=== PATIENT | female | born 1965 | race Native Hawaiian/Other Pacific Islander ===

== ENCOUNTER 2017-02-01 22:11 | Emergency (ER) | payer SELFPAY ==
[2017-02-01 22:16] VITALS: BP 128/88
[2017-02-02 01:42] LABS: Bilirubin,Urine NEG (Negative); Blood,Urine NEG (Negative); Ketones,Urine NEG (Negative); Leukocyte Esterase,Urine SM (Negative); Nitrite,Urine NEG (Negative); Protein,Urine <15 mg/dL mg/dL (Negative); Urobilinogen,Urine < 2.0 mg/dL (<2.0)
[2017-02-02] MEDS ORDERED: NORCO 5/325 PO ONE (03:18)
--- NOTE | 2017-02-02 03:22 | Emergency Department Report ---
ED Back Pain/Injury HPI - General Chief Complaint: Back Pain/Injury Stated Complaint: LOWER BACK PAIN Time Seen by Provider: 02/02/17 03:02 Source: patient Limitations: No Limitations - History of Present Illness Initial Comments: 51-year-old female presents to emergency room with complaints of chronic low back pain. Denies any recent fall or injury. Patient recently moved from [place] and does not have a primary care doctor here. Patient also requesting refill her metformin for her diabetes. Complaint: back pain -: Gradual, year(s) Place: home Radiation: none Severity: mild Severity scale (0 -10): 2 Quality: dull, aching Consistency: constant Improves With: movement Worsens With: movement Context: turning/twisting, bending Associated Symptoms: denies other symptoms Treatments Prior to Arrival: NSAIDS - Related Data Previous Rx's Medication Instructions Recorded Last Taken Type Baclofen 20 mg PO BID #20 tablet 02/02/17 Unknown Rx Diclofenac Sodium 75 mg PO BID #20 tablet. 02/02/17 Unknown Rx Metformin HCl [Glucophage] 1,000 mg PO BID #60 tablet 02/02/17 Unknown Rx Allergies Allergy/AdvReac Type Severity Reaction Status Date / Time No Known Allergies Allergy Unverified 02/01/17 22:40 ED Review of Systems ROS: Stated complaint: LOWER BACK PAIN Other details as noted in HPI Comment: All other systems reviewed and negative Constitutional: denies: chills, fever Eyes: denies: eye pain, eye discharge, vision change ENT: denies: ear pain, throat pain Respiratory: denies: cough, shortness of breath, wheezing Cardiovascular: denies: chest pain, palpitations Endocrine: no symptoms reported Gastrointestinal: denies: abdominal pain, nausea, diarrhea Genitourinary: denies: urgency, dysuria, discharge Musculoskeletal: back pain. denies: joint swelling, arthralgia Skin: denies: rash, lesions Neurological: denies: headache, weakness, paresthesias Psychiatric: denies: anxiety, depression Hematological/Lymphatic: denies: easy bleeding, easy bruising ED Past Medical Hx - Past Medical History Previous Medical History?: Yes Hx Hypertension: Yes Hx Diabetes: Yes Additional medical history: hyperlipidemia - Surgical History Past Surgical History?: Yes Additional Surgical History: gallbladder, L ovary removal - Social History Smoking Status: Never Smoker Substance Use Type: None - Medications Home Medications: Home Medications Medication Instructions Recorded Confirmed Last Taken Type Baclofen 20 mg PO BID #20 tablet 02/02/17 Unknown Rx Diclofenac Sodium 75 mg PO BID #20 tablet. 02/02/17 Unknown Rx Metformin HCl [Glucophage] 1,000 mg PO BID #60 tablet 02/02/17 Unknown Rx ED Physical Exam - General Limitations: No Limitations General appearance: alert, in no apparent distress - Head Head exam: Present: atraumatic, normocephalic - Eye Eye exam: Present: normal appearance - ENT ENT exam: Present: mucous membranes moist - Neck Neck exam: Present: normal inspection - Respiratory Respiratory exam: Present: normal lung sounds bilaterally. Absent: respiratory distress - Cardiovascular Cardiovascular Exam: Present: regular rate, normal rhythm. Absent: systolic murmur, diastolic murmur, rubs, gallop - GI/Abdominal GI/Abdominal exam: Present: soft, normal bowel sounds - Extremities Exam Extremities exam: Present: normal inspection - Back Exam Back exam: Present: normal inspection, muscle spasm (right paraspinal area of L4 to L5), paraspinal tenderness - Neurological Exam Neurological exam: Present: alert, oriented X3 - Psychiatric Psychiatric exam: Present: normal affect, normal mood - Skin Skin exam: Present: warm, dry, intact, normal color. Absent: rash ED Course Vital Signs 02/01/17 02/01/17 22:12 22:35 Temperature 98.3 F 98.3 F Pulse Rate 97 H 97 H Respiratory 20 20 Rate Blood Pressure 128/88 Blood Pressure 128/88 [Right] O2 Sat by Pulse 100 100 Oximetry - Reevaluation(s) Reevaluation #1: Patient's symptoms improved after given pain medicine. 02/02/17 03:41 Critical care attestation.: If time is entered above; I have spent that time in minutes in the direct care of this critically ill patient, excluding procedure time. ED Disposition Clinical Impression: Medication refill Chronic lower back pain Qualifiers: Back pain laterality: right Sciatica presence: without sciatica Qualified Code( s): M54.5 - Low back pain; G89.29 - Other chronic pain Disposition: DISCHARGED TO HOME OR SELFCARE Is pt being admited?: No Does the pt Need Aspirin: No Condition: Good Instructions: Chronic Back Pain (ED), Diabetes Mellitus Type 2 in Adults (ED) Prescriptions: Baclofen 20 mg PO BID #20 tablet Diclofenac Sodium 75 mg PO BID #20 tablet. Metformin HCl [Glucophage] 1,000 mg PO BID #60 tablet Referrals: PRIMARY CARE, [Primary Care Provider] - 3-5 Days Print Language: CAMEROONIAN
== END 2017-02-02 04:10 | disposition home or self-care (01) ==
LOC: ED 22:11
DX: M54.5 Low back pain (principal); G89.29 Other chronic pain; I10 Essential (primary) hypertension; E11.9 Type 2 diabetes mellitus without complications; E78.00 Pure hypercholesterolemia, unspecified
CPT/HCPCS: 81001; 82962; 99284

== ENCOUNTER 2017-04-27 21:04 | Emergency (ER) | payer SELFPAY ==
[2017-04-27 21:12] VITALS: BP 121/85
--- NOTE | 2017-04-27 23:57 | Emergency Department Report ---
ED Headache HPI - General Chief Complaint: Headache Stated Complaint: CRUZ Time Seen by Provider: 04/27/17 23:37 Source: patient Exam Limitations: no limitations - History of Present Illness Initial Comments: Patient is a 51-year-old female presents to the ED complaining of her right parietal region throbbing, intermittent and 6/10 intensity headache that started about 12:30 this afternoon. Patient denies any recent trauma or fall, loss of consciousness. Patient states she frequently gets migraines. She denies fevers/chills/nausea/vomiting/abdominal pain/chest pain/blurry vision /loss of vision. Timing/Duration: other (12 hours) Quality: moderate, throbbing Head Injury Location: parietal Recent Head Trauma: no recent headache/trauma, frequent headaches Modifying Factors: improves with: medication Associated Symptoms: denies: confusion, facial pain, fever/chills, loss of consciousness, nausea/vomiting, nasal congestion, nasal drainage, sinus infection, stiff neck, vision changes Allergies/Adverse Reactions: Allergies No Known Allergies Allergy (Unverified 02/01/17 22:40) Home Medications: Ambulatory Orders Baclofen 20 mg PO BID #20 tablet 02/02/17 Diclofenac Sodium 75 mg PO BID #20 tablet. 02/02/17 Metformin HCl [Glucophage] 1,000 mg PO BID #60 tablet 02/02/17 Butalb/Acetamin/Caff 50-325-40 [Fioricet] 1 tab PO Q6HR PRN #24 tab 04/28/17 Prochlorperazine Maleate [Compazine] 5 mg PO BID #20 tablet 04/28/17 ED Review of Systems ROS: Stated complaint: CRUZ Other details as noted in HPI Constitutional: denies: chills, fever Eyes: denies: eye pain, eye discharge, vision change ENT: denies: ear pain, throat pain, dental pain, hearing loss, congestion Respiratory: denies: cough, orthopnea, shortness of breath, wheezing Cardiovascular: denies: chest pain, palpitations Endocrine: no symptoms reported. denies: flushing Gastrointestinal: denies: abdominal pain, nausea, vomiting, diarrhea Genitourinary: denies: urgency, dysuria, discharge Musculoskeletal: denies: back pain, joint swelling, arthralgia, myalgia Skin: denies: rash, lesions Neurological: headache. denies: weakness, numbness, paresthesias, confusion, abnormal gait, vertigo, other Psychiatric: denies: anxiety, depression, suicidal thoughts Hematological/Lymphatic: denies: easy bleeding, easy bruising ED Past Medical Hx - Past Medical History Hx Hypertension: Yes Hx Diabetes: Yes Additional medical history: hyperlipidemia - Surgical History Additional Surgical History: gallbladder, L ovary removal - Social History Smoking Status: Never Smoker Substance Use Type: None - Medications Home Medications: Home Medications Medication Instructions Recorded Confirmed Last Taken Type Baclofen 20 mg PO BID #20 tablet 02/02/17 Unknown Rx Diclofenac Sodium 75 mg PO BID #20 tablet. 02/02/17 Unknown Rx Metformin HCl [Glucophage] 1,000 mg PO BID #60 tablet 02/02/17 Unknown Rx Butalb/Acetamin/Caff 50-325-40 1 tab PO Q6HR PRN #24 tab 04/28/17 Unknown Rx [Fioricet] Prochlorperazine Maleate 5 mg PO BID #20 tablet 04/28/17 Unknown Rx [Compazine] ED Physical Exam - General Limitations: No Limitations General appearance: alert, in no apparent distress - Head Head exam: Present: atraumatic, normocephalic - Eye Eye exam: Present: normal appearance, PERRL, EOMI Pupils: Present: normal accommodation - ENT ENT exam: Present: mucous membranes moist - Neck Neck exam: Present: normal inspection, full ROM. Absent: lymphadenopathy, thyromegaly - Respiratory Respiratory exam: Present: normal lung sounds bilaterally. Absent: respiratory distress, wheezes - Cardiovascular Cardiovascular Exam: Present: regular rate, normal rhythm. Absent: systolic murmur, diastolic murmur, rubs, gallop - GI/Abdominal GI/Abdominal exam: Present: soft, normal bowel sounds - Extremities Exam Extremities exam: Present: normal inspection, full ROM - Back Exam Back exam: Present: normal inspection - Neurological Exam Neurological exam: Present: alert, oriented X3, CN II-XII intact, normal gait - Expanded Neurological Exam Expanded Neurological exam: Absent: memory loss-remote event, memory loss-recent event Patient oriented to: Present: person, place, time Cranial nerves: EOM's Intact: Normal Cerebellar function: Finger to Nose: Normal Upper motor neuron: Sensory Extinction: Normal Sensory exam: Upper Extremity Light Touch: Normal, Lower Extremity Light Touch: Normal Motor strength exam: RUE: 5, LUE: 5, RLE: 5, LLE: 5 DTR: knee (R): 2+, knee (L): 2+ Best Eye Response ([place]): (4) open spontaneously Best Motor Response ([place]): (6) obeys commands Best Verbal Response ([place]): (5) oriented [place] Total: 15 - Psychiatric Psychiatric exam: Present: normal affect, normal mood - Skin Skin exam: Present: warm, dry, intact, normal color. Absent: rash ED Course Vital Signs 04/27/17 04/28/17 21:07 00:15 Temperature 98.3 F Pulse Rate 88 Respiratory 16 18 Rate Blood Pressure 121/85 O2 Sat by Pulse 100 Oximetry ED Medical Decision Making - Medical Decision Making 51-year-old female presents with acute headache ED course: Patient received Fioricet and Tylenol in the ED Patient is neurological stable she's is no neuro deficit. Vital signs are stable patient is in no acute distress. Discussed the patient to follow up with primary care physician as referred. Discussed the patient's symptoms worsen or new symptoms arise such as nausea vomiting dizziness to return to ED Critical care attestation.: If time is entered above; I have spent that time in minutes in the direct care of this critically ill patient, excluding procedure time. ED Disposition Clinical Impression: Migraine headache without aura Qualifiers: Status migrainosus presence: without status migrainosus Intractability: not intractable Qualified Code(s): G43.009 - Migraine without aura, not intractable , without status migrainosus Acute tension headache Qualifiers: Intractability: not intractable Qualified Code(s): G44.209 - Tension-type headache, unspecified, not intractable Disposition: DISCHARGED TO HOME OR SELFCARE Is pt being admited?: No Does the pt Need Aspirin: No Condition: Stable Instructions: Migraine Headache (ED), Acute Headache (ED) Prescriptions: Butalb/Acetamin/Caff 50-325-40 [Fioricet] 1 tab PO Q6HR PRN #24 tab PRN Reason: Headache Prochlorperazine Maleate [Compazine] 5 mg PO BID #20 tablet Referrals: PRIMARY CARE, [Primary Care Provider] - 3-5 Days ARIANNA MELLO MD [Referring] - 3-5 Days [facility] [Outside] - 3-5 Days [facility] [Outside] - 3-5 Days [facility] [Outside] - 3-5 Days Forms: Work/School Release Form(ED) Time of Disposition: 00:04
[2017-04-27] MEDS ORDERED: FIORICET PO ONE (23:59)
[2017-04-28] MEDS ORDERED: TORADOL IM ONE
== END 2017-04-28 00:32 | disposition home or self-care (01) ==
LOC: ED 21:04
DX: G43.009 Migraine without aura, not intractable, without status migrainosus (principal); G44.209 Tension-type headache, unspecified, not intractable; I10 Essential (primary) hypertension; E11.9 Type 2 diabetes mellitus without complications
CPT/HCPCS: 96372; 99282; J1885

== ENCOUNTER 2017-05-05 19:20 | Emergency (ER) | payer SELFPAY ==
[2017-05-05] MEDS ORDERED: REGLAN IV ONE (22:56)
--- NOTE | 2017-05-05 23:12 | Emergency Department Report ---
ED Headache HPI - General Chief Complaint: Headache Stated Complaint: HEADACHES Time Seen by Provider: 05/05/17 22:55 - History of Present Illness Timing/Duration: 1 week Allergies/Adverse Reactions: Allergies No Known Allergies Allergy (Unverified 02/01/17 22:40) Home Medications: Ambulatory Orders Baclofen 20 mg PO BID #20 tablet 02/02/17 Diclofenac Sodium 75 mg PO BID #20 tablet. 02/02/17 Metformin HCl [Glucophage] 1,000 mg PO BID #60 tablet 02/02/17 Butalb/Acetamin/Caff 50-325-40 [Fioricet] 1 tab PO Q6HR PRN #24 tab 04/28/17 Prochlorperazine Maleate [Compazine] 5 mg PO BID #20 tablet 04/28/17 Naproxen [Naprosyn TAB] 500 mg PO BID PRN #25 tablet 05/06/17 ED Review of Systems ROS: Stated complaint: HEADACHES Other details as noted in HPI ED Past Medical Hx - Past Medical History Previous Medical History?: Yes Hx Hypertension: Yes Hx Diabetes: Yes Additional medical history: hyperlipidemia - Surgical History Past Surgical History?: Yes Additional Surgical History: gallbladder, L ovary removal - Social History Smoking Status: Never Smoker Substance Use Type: None - Medications Home Medications: Home Medications Medication Instructions Recorded Confirmed Last Taken Type Baclofen 20 mg PO BID #20 tablet 02/02/17 Unknown Rx Diclofenac Sodium 75 mg PO BID #20 tablet. 02/02/17 Unknown Rx Metformin HCl [Glucophage] 1,000 mg PO BID #60 tablet 02/02/17 Unknown Rx Butalb/Acetamin/Caff 50-325-40 1 tab PO Q6HR PRN #24 tab 04/28/17 Unknown Rx [Fioricet] Prochlorperazine Maleate 5 mg PO BID #20 tablet 04/28/17 Unknown Rx [Compazine] Naproxen [Naprosyn TAB] 500 mg PO BID PRN #25 tablet 05/06/17 Unknown Rx ED Physical Exam - General Limitations: No Limitations ED Course Vital Signs 05/05/17 19:47 Temperature 98.8 F Pulse Rate 91 H Respiratory 18 Rate Blood Pressure 123/84 [Right] O2 Sat by Pulse 98 Oximetry ED Medical Decision Making - Lab Data Result diagrams: 05/05/17 23:10 05/05/17 23:10 - Medical Decision Making A/P: Migraine headache, right lower extremity cellulitis 1- with 1 dose of IV Reglan patient's headache is now 0 out of 10. initally 07/05 2-CT scan within normal limits 3-CBC and BMP within normal limits 4-will give patient follow up with primary care and neurology, naproxen when necessary for headache 5- patient has no clinical neurological deficits on exam 6-Keflex and Bactrim twice a day, borders of cellulitis marked Critical care attestation.: If time is entered above; I have spent that time in minutes in the direct care of this critically ill patient, excluding procedure time. ED Disposition Clinical Impression: Migraine headache without aura Qualifiers: Status migrainosus presence: without status migrainosus Intractability: not intractable Qualified Code(s): G43.009 - Migraine without aura, not intractable , without status migrainosus Disposition: TO HOME OR SELFCARE Is pt being admited?: No Does the pt Need Aspirin: No Condition: Stable Instructions: Migraine Headache (ED), Acute Headache (ED) Prescriptions: Naproxen [Naprosyn TAB] 500 mg PO BID PRN #25 tablet PRN Reason: Pain Referrals: GALE FERNANDEZ MD [Staff Physician] - 3-5 Days [facility] [Outside] - 3-5 Days Forms: Work/School Release Form(ED) Time of Disposition: 01:42 Print Language: PARAGUAYAN
--- NOTE | 2017-05-05 23:50 | Cat Scan Report ---
FINAL REPORT PROCEDURE: CT HEAD/BRAIN WO CON TECHNIQUE: Computerized tomography of the head was performed without contrast material. HISTORY: worsening headache COMPARISON: No prior studies are available for comparison. FINDINGS: Skull and scalp: Normal. Paranasal sinuses: Normal. Ventricles and subarachnoid spaces: Normal. Cerebrum: No evidence of hemorrhage, acute infarction or mass . Cerebellum and brainstem: No evidence of hemorrhage, acute infarction or mass. Vasculature: Normal. Comments: None. IMPRESSION: There is evidence of an acute intracranial process.
[2017-05-06 01:03] LABS: Anion Gap 16 mmol/L; Blood Urea Nitrogen 9 mg/dL (7-17); Calcium 9.6 mg/dL (8.4-10.2); Carbon Dioxide 28 mmol/L (22-30); Chloride 103.2 mmol/L (98-107); Glucose 189 mg/dL (65-100); Potassium 4.6 mmol/L (3.6-5.0); Sodium 143 mmol/L (137-145)
[2017-05-06 01:17] LABS: Basophils % (Auto) 0.7 % (0.0-1.8); Eosinophils % (Auto) 2.7 % (0.0-4.3); Hemoglobin 13.8 gm/dl (10.1-14.3); Mean Corpuscular HGB Conc 33 % (30-34); Mean Corpuscular Hemoglobin 29 pg (28-32); Mean Corpuscular Volume 87 fl (79-97); Platelet Count 139 K/mm3 (140-440); Red Blood Count 4.85 M/mm3 (3.65-5.03); Red Cell Distribution Width 14.7 % (13.2-15.2); White Blood Count 6.1 K/mm3 (4.5-11.0)
[2017-05-06 02:05] VITALS: BP 116/73
== END 2017-05-06 02:05 | disposition home or self-care (01) ==
LOC: ED 19:20
DX: G43.909 Migraine, unspecified, not intractable, without status migrainosus (principal); I10 Essential (primary) hypertension; E11.9 Type 2 diabetes mellitus without complications; E78.5 Hyperlipidemia, unspecified
CPT/HCPCS: 36415; 70450; 80048; 85025; 96374; 99284; J2765

== ENCOUNTER 2017-06-29 07:41 | Inpatient (IN) | payer SELFPAY ==
[2017-06-29 08:17] LABS: Basophils % (Auto) 0.9 % (0.0-1.8); Eosinophils % (Auto) 3.5 % (0.0-4.3); Hematocrit 39.1 % (30.3-42.9); Hemoglobin 13.2 gm/dl (10.1-14.3); Mean Corpuscular HGB Conc 34 % (30-34); Mean Corpuscular Hemoglobin 29 pg (28-32); Mean Corpuscular Volume 86 fl (79-97); Platelet Count 159 K/mm3 (140-440); Red Blood Count 4.55 M/mm3 (3.65-5.03); Red Cell Distribution Width 14.5 % (13.2-15.2); White Blood Count 5.3 K/mm3 (4.5-11.0)
--- NOTE | 2017-06-29 08:23 | Emergency Department Report ---
ED Chest Pain HPI - General Chief Complaint: Chest Pain Stated Complaint: CHEST PRESSURE Time Seen by Provider: 06/29/17 08:13 Source: patient, EMS Mode of arrival: Stretcher Limitations: No Limitations - History of Present Illness Initial Comments: Patient stated that she work on this morning went to the bathroom and she felt left chest pressure that continued 4 minutes and went away. Denied any shortness of breath nausea or vomiting no sweating. No fever MD Complaint: chest pain -: This morning - Related Data Home Medications Medication Instructions Recorded Confirmed Last Taken Lovastatin [Altoprev] 20 mg PO QPM 06/29/17 06/29/17 06/28/17 Previous Rx's Medication Instructions Recorded Last Taken Type Metformin HCl [Glucophage] 1,000 mg PO BID #60 tablet 02/02/17 06/28/17 Rx Allergies Allergy/AdvReac Type Severity Reaction Status Date / Time No Known Allergies Allergy Unverified 02/01/17 22:40 Heart Score - HEART Score History: Moderately suspicious EKG: Non-specific Age: 45-65 Risk factors: > 3 risk factors or hx of atherosclerotic disease Troponin: < normal limit HEART Score: 5 - Critical Actions Critical Actions: 4-6 pts:12-16.6% risk of adverse cardiac event. Should be admitted ED Review of Systems ROS: Stated complaint: CHEST PRESSURE Other details as noted in HPI Comment: All other systems reviewed and negative Constitutional: denies: chills, fever Cardiovascular: chest pain. denies: palpitations, dyspnea on exertion, orthopnea, syncope Gastrointestinal: denies: abdominal pain, nausea, vomiting Musculoskeletal: denies: back pain Neurological: denies: headache, weakness, numbness ED Past Medical Hx - Past Medical History Hx Hypertension: Yes Hx Diabetes: Yes Additional medical history: hyperlipidemia - Surgical History Additional Surgical History: gallbladder, L ovary removal - Social History Smoking Status: Light Tobacco Smoker Substance Use Type: None - Medications Home Medications: Home Medications Medication Instructions Recorded Confirmed Last Taken Type Metformin HCl [Glucophage] 1,000 mg PO BID #60 tablet 02/02/17 06/29/17 Rx Lovastatin [Altoprev] 20 mg PO QPM 06/29/17 06/29/17 06/28/17 History ED Physical Exam - General Limitations: No Limitations General appearance: alert, in no apparent distress - Head Head exam: Present: atraumatic - Eye Eye exam: Present: normal appearance - ENT ENT exam: Present: normal exam - Neck Neck exam: Present: normal inspection. Absent: tenderness - Respiratory Respiratory exam: Present: normal lung sounds bilaterally. Absent: respiratory distress, wheezes, rales - Cardiovascular Cardiovascular Exam: Present: regular rate, normal rhythm, normal heart sounds - GI/Abdominal GI/Abdominal exam: Present: soft. Absent: tenderness, guarding, mass, pulsatile mass - Extremities Exam Extremities exam: Present: normal inspection - Back Exam Back exam: Present: normal inspection - Neurological Exam Neurological exam: Present: alert, oriented X3, CN II-XII intact - Skin Skin exam: Present: warm, intact ED Course Vital Signs 06/29/17 06/29/17 06/29/17 07:45 07:50 08:00 Temperature 98.3 F Pulse Rate 88 90 Respiratory 16 14 Rate Blood Pressure 122/80 122/80 O2 Sat by Pulse 97 96 97 Oximetry 06/29/17 06/29/17 06/29/17 08:06 08:11 08:21 Temperature Pulse Rate 89 85 Respiratory 16 13 12 Rate Blood Pressure 126/88 O2 Sat by Pulse 99 97 97 Oximetry 06/29/17 06/29/17 08:31 08:41 Temperature Pulse Rate 87 89 Respiratory 12 13 Rate Blood Pressure 126/88 126/88 O2 Sat by Pulse 96 96 Oximetry - Reevaluation(s) Reevaluation #1: 06/29/17 10:04 Patient stated that she is feeling much better chest pain is completely resolved. Discussed with SHANNON for admission ED Medical Decision Making - Lab Data Result diagrams: 06/29/17 08:08 06/29/17 08:08 Critical care attestation.: If time is entered above; I have spent that time in minutes in the direct care of this critically ill patient, excluding procedure time. ED Disposition Clinical Impression: Chest pain Disposition: OP ADMIT IP TO THIS HOSP Is pt being admited?: Yes Condition: Stable Instructions: Chest Pain (ED) Referrals: PRIMARY CARE,MD [Primary Care Provider] - 3-5 Days
[2017-06-29 08:38] LABS: Anion Gap 21 mmol/L; Blood Urea Nitrogen 7 mg/dL (7-17); Calcium 8.9 mg/dL (8.4-10.2); Carbon Dioxide 24 mmol/L (22-30); Chloride 100.8 mmol/L (98-107); Glucose 244 mg/dL (65-100); Potassium 3.8 mmol/L (3.6-5.0); Sodium 142 mmol/L (137-145)
--- NOTE | 2017-06-29 08:52 | XRay Report ---
AP CHEST: HISTORY: chest pain AP view of the chest demonstrates a normal mediastinal and cardiac contour with clear lungs and normal bony and soft tissue structures. IMPRESSION: Unremarkable AP chest.
[2017-06-29 08:58] LABS: Alanine Aminotransferase 45 units/L (7-56); Albumin 3.9 g/dL (3.9-5); Albumin/Globulin Ratio 1.4 %; Alkaline Phosphatase 91 units/L (35-129); Lipase 55 units/L (13-60); Total Protein 6.6 g/dL (6.3-8.2)
[2017-06-29] MEDS: BABY ASPIRIN PO ONE ×2 (09:00→09:01)
[2017-06-29 09:22] LABS: Bilirubin,Direct < 0.2 mg/dL (0-0.2); Bilirubin,Indirect 0.4 mg/dL
--- NOTE | 2017-06-29 10:13 | History and Physical Report ---
History of Present Illness Date of examination: 06/29/17 Date of admission: 06/29/2017 Chief complaint: Chest pain History of present illness: Patient is a 52 years female with past medical history of hypertension, and diabetes mellitus, who presented to the ED complaining of left chest pain. She states that the pain began this morning and consisted of a dull pain. The pain was located over her left chest, pressure in nature; non radiating. The onset of pain came while the patient was walking to the bathroom. The pain is a dull, preceded by a short interval of a sharp pain.The sharp pain lasted around 1-2 seconds. She continued to have several episodes of the pain this morning, so she decided to come to emergency department. The painful episodes did not increase in intensity or severity during this time. Patient was given nitroglycerin, ASA with out improvement. There is no aggravating factor or alleviating factors. The patient currently rated her pain a score of 1/10. She experienced diaphoresis during these episodes of pain. She denies nausea vomiting and Shortness of breathing. She has never had chest pain in the past. Past History Past Medical History: diabetes, hypertension Past Surgical History: No surgical history Social history: lives with family, smoking. denies: alcohol abuse Family history: CAD, hypertension Medications and Allergies Allergies Allergy/AdvReac Type Severity Reaction Status Date / Time No Known Allergies Allergy Unverified 02/01/17 22:40 Home Medications Medication Instructions Recorded Confirmed Last Taken Type Metformin HCl [Glucophage] 1,000 mg PO BID #60 tablet 02/02/17 06/29/17 Rx Lovastatin [Altoprev] 20 mg PO QPM 06/29/17 06/29/17 06/28/17 History Review of Systems Constitutional: no weight loss, no weight gain Ears, nose, mouth and throat: no ear pain, no ear discharge, no tinnitis, no decreased hearing Breasts: no normal Cardiovascular: chest pain, no syncope, no lightheadedness, no shortness of breath, no dyspnea on exertion Respiratory: no cough, no cough with sputum, no excessive sputum, no shortness of breath, no dyspnea on exertion Gastrointestinal: nausea, no vomiting, no diarrhea, no constipation Genitourinary Female: no pelvic pain, no flank pain, no menorrhagia Rectal: no pain, no incontinence, no bleeding Musculoskeletal: no neck stiffness, no neck pain, no shooting arm pain Integumentary: no rash, no pruritis, no redness Neurological: no head injury, no transient paralysis, no paralysis Psychiatric: no anxiety, no memory loss, no change in sleep habits Endocrine: no cold intolerance, no heat intolerance, no polyphagia Hematologic/Lymphatic: no easy bruising, no easy bleeding Allergic/Immunologic: no urticaria, no allergic rhinitis Exam - Constitutional Vitals: Temp Pulse Resp BP Pulse Ox 98.3 F 89 13 126/88 96 06/29/17 07:45 06/29/17 08:41 06/29/17 08:41 06/29/17 08:41 06/29/17 08:41 General appearance: Present: no acute distress - EENT Eyes: Present: PERRL ENT: hearing intact - Neck Neck: Present: supple - Respiratory Respiratory effort: normal Respiratory: bilateral: CTA - Cardiovascular Rhythm: regular Heart Sounds: Present: S1 & S2 - Extremities Extremities: no ischemia Peripheral Pulses: within normal limits - Abdominal General gastrointestinal: Present: soft, non-tender - Rectal Rectal Exam: deferred - Integumentary Integumentary: Present: clear, warm, dry - Musculoskeletal Musculoskeletal: strength equal bilaterally - Psychiatric Psychiatric: appropriate mood/affect - Neurologic Neurologic: CNII-XII intact - Allied Health Allied health notes reviewed: nursing Results - Labs CBC & Chem 7: 06/29/17 08:08 06/29/17 08:08 Labs: Laboratory Last Values WBC 5.3 K/mm3 (4.5-11.0) 06/29/17 08:08 RBC 4.55 M/mm3 (3.65-5.03) 06/29/17 08:08 Hgb 13.2 gm/dl (10.1-14.3) 06/29/17 08:08 Hct 39.1 % (30.3-42.9) 06/29/17 08:08 MCV 86 fl (79-97) 06/29/17 08:08 MCH 29 pg (28-32) 06/29/17 08:08 MCHC 34 % (30-34) 06/29/17 08:08 RDW 14.5 % (13.2-15.2) 06/29/17 08:08 Plt Count 159 K/mm3 (140-440) 06/29/17 08:08 Lymph % (Auto) 41.6 % (13.4-35.0) H 06/29/17 08:08 [place] % (Auto) 8.2 % (0.0-7.3) H 06/29/17 08:08 Eos % (Auto) 3.5 % (0.0-4.3) 06/29/17 08:08 Baso % (Auto) 0.9 % (0.0-1.8) 06/29/17 08:08 Lymph # 2.2 K/mm3 (1.2-5.4) 06/29/17 08:08 [place] # 0.4 K/mm3 (0.0-0.8) 06/29/17 08:08 Eos # 0.2 K/mm3 (0.0-0.4) 06/29/17 08:08 Baso # 0.0 K/mm3 (0.0-0.1) 06/29/17 08:08 Seg Neutrophils % 45.8 % (40.0-70.0) 06/29/17 08:08 Seg Neutrophils # 2.4 K/mm3 (1.8-7.7) 06/29/17 08:08 D-Dimer 140.53 ng/mlDDU (0-234) 06/29/17 08:31 Sodium 142 mmol/L (137-145) 06/29/17 08:08 Potassium 3.8 mmol/L (3.6-5.0) 06/29/17 08:08 Chloride 100.8 mmol/L (98-107) 06/29/17 08:08 Carbon Dioxide 24 mmol/L (22-30) 06/29/17 08:08 Anion Gap 21 mmol/L 06/29/17 08:08 BUN 7 mg/dL (7-17) 06/29/17 08:08 Creatinine 0.7 mg/dL (0.7-1.2) 06/29/17 08:08 Estimated GFR > 60 ml/min 06/29/17 08:08 BUN/Creatinine Ratio 10.00 % 06/29/17 08:08 Glucose 244 mg/dL (65-100) H 06/29/17 08:08 Calcium 8.9 mg/dL (8.4-10.2) 06/29/17 08:08 Total Bilirubin 0.60 mg/dL (0.1-1.2) 06/29/17 08:31 Direct Bilirubin < 0.2 mg/dL (0-0.2) 06/29/17 08:31 Indirect Bilirubin 0.4 mg/dL 06/29/17 08:31 AST 29 units/L (5-40) 06/29/17 08:31 ALT 45 units/L (7-56) 06/29/17 08:31 Alkaline Phosphatase 91 units/L (35-129) 06/29/17 08:31 Troponin T < 0.010 ng/mL (0.00-0.029) 06/29/17 08:08 Total Protein 6.6 g/dL (6.3-8.2) 06/29/17 08:31 Albumin 3.9 g/dL (3.9-5) 06/29/17 08:31 Albumin/Globulin Ratio 1.4 % 06/29/17 08:31 Lipase 55 units/L (13-60) 06/29/17 08:31 - Imaging and Cardiology Chest x-ray: image reviewed (unremarkable AP chest) Assessment and Plan Assessment and plan: Patient is a 52 years female with past medical history of hypertension, and diabetes mellitus, who presented to the ED complaining of left chest pain. She states that the pain began this morning and consisted of a dull pain.Patient has never had chest pain in the past. Chest x-ray-no focal infiltrates, no pneumothorax. Cardiac enzyme negative and EKG normal sinus rhythm. ASSESSMENT/PLAN Chest pain We will admit to telemetry 12-lead EKG Normal sinus rhythm with heart rate of 72, we also get another EKG ordered for any changes have taken since the first obtain Serial cardiac enzymes negative X3 Fluid hydration Stress test Lexiscan ordered Start on aspirin Controlled with morphine Hypertension IV hydralazine for SBP greater than 160 Closely monitor blood pressure Diabetes mellitus Sliding scale insulin/NovoLog Accu-Chek before meals and at bedtime ADA consistent carbohydrate/cardiac diet Brief Psychotic Episode with questionable hallucinations Mental health evaluation Hyperlipidemia we will resume home antilipid medications Discussed with the patient about the importance of physical exercise, low fat foods to improve cardiovascular disease. DVT prophylaxis Lovenox Advance Directives: Yes Contraindication Mechanical VTE Prophylaxis: Treatment Not Indicated Plan of care discussed with patient/family: Yes
[2017-06-29] MEDS ORDERED: MORPHINE IV PRN (10:14)
[2017-06-29] MEDS ORDERED: DULCOLAX PR PRN (10:14)
[2017-06-29] MEDS ORDERED: TYLENOL PO PRN (10:14)
[2017-06-29] MEDS ORDERED: D50W (25GM) IV PRN (10:18)
[2017-06-29 10:20] LABS: Urine Drugs of Abuse Note Disclamer
[2017-06-29] MEDS ORDERED: NITROSTAT SL PRN (10:22)
--- NOTE | 2017-06-29 10:30 | Admit Criteria Form ---
Admission Criteria Documentation: CHEST PAIN Clinical Indications for Admission to Inpatient Care (Place 'X' for any and all applicable criteria): Admission is indicated for chest pain and ANY ONE of the following(1)(2)(3)(4)(5 ): [ ]I. Angina with acute coronary syndrome (Also use Myocardial Infarction or Angina guideline) [ ]II. Hemodynamic instability [ X]III. Angina needing acute intervention as indicated by ALL of the following (11)(12): [X ]a) Unstable angina is present as indicated by angina that is ANY ONE of the following: [X ]i) New onset [ ]ii) Nocturnal [ ]iii) Prolonged at rest [ ]iv) Progressive [X ]b) Angina warrants acute intervention as indicated by ANY ONE of the following: [ ]i) Recurrent angina (e.g, not responding as previously to treatment) [ ]ii) Angina at rest or with low-level activities despite initial medical therapy [ ]iii) New or presumably new ST-segment depression on ECG [ ]iv) Signs or symptoms of heart failure (eg, dyspnea, pulmonary edema) [ ]v) New or worsening mitral regurgitation [ ]vi) Hemodynamic instability [ ]vii) Dangerous arrhythmia (eg, sustained ventricular tachycardia) [ ]viii) History of percutaneous coronary intervention within 6 months [ ]ix) History of coronary artery bypass graft surgery [ ]x) QUIN risk score of 2 or greater[A] [X ]xi) History of Diabetes(14) [ ]xii) High-risk cardiac ischemia findings on noninvasive testing (e.g, echocardiogram, treadmill testing, nuclear scan) [ ]xiii) Chronic renal insufficiency (ie, estimated GFR less than 60 mL/min/1.732m) [ ]xiv) Left ventricular ejection fraction less than 40% [ ]IV. Evidence of NE (eg, cardiac biomarkers positive, ST-segment elevation on ECG) also use Myocardial Infarction Criteria Form. [ ]V. Pulmonary edema [ ]. Respiratory distress [ ]VII. Chest pain indicative of serious diagnosis other than coronary artery disease (eg, aortic dissection) [ ]VIII. Contraindications and/or Inappropriate clinical situations for Observational Care in patients with Chest Pain, when ANY ONE of the following is required: [ ]a) Patient with risk factor for pulmonary embolism, acute coronary syndrome and myocardial infarction (18) [ ]b) Patient with Pulmonary embolism require an average LOS of 4.3 days, therefore emergency department observation management is inappropriate 18,23 [ ]c) Painful condition/s in the elderly, have the highest rate of recidivism after emergency department observation management (10.8%) 20,21,22 [ ]d) Elevated cardiac biomarker requires intensive and exhaustive care (19) [X ]IX. General contraindications and/or Inappropriate clinical situations for Observational Care in patients with Chest Pain, when ANY ONE of the following is required: [ X]a) Prediction of prolongation of LOS based on ANY ONE of the following may be considered as a contraindication for observational care 2, 3, 4, 5, 6, 7, 8, 9, 10, 11 [ ]i) Age > 65 yrs. [X ]ii) Patient arriving by ambulance [ ]iii) Patient with high acuity [ ]iv) Patient requiring vital sign monitoring [ ]v) Patient on IV medication [ ]b) Systolic blood pressures 180mmHg 3,12 [ ]c) Patient with altered mental status including delirium and other alteration of consciousness, (3) [ ]d) Patient whose discharge disposition will be to a longterm home or rehabilitation home should not be managed in Emergency Department Observation Unit. CMS rule requires 3 days hospital stay before such placement. 3,13 [ ]e) Patient with failure to thrive due to broad array of etiologies 3,16,17 [ ]f) Inability to ambulate 3,14 Extended stay beyond goal length of stay may be needed for (1)(28): [ ]a) Specific condition diagnosed after evaluation (eg, pulmonary embolism, aortic dissection) [ ]b) Unstable angina [ ]c) Continued suspicion of acute coronary syndrome with inability to complete needed cardiac evaluation (eg, patient clinically unable to undergo stress testing) [ ]d) Myocardial infarction (Contents from ANGINA and CHEST PAIN clinical indications for admission to inpatient care have been integrated in this form) The original [employer] content created by [employer] has been revised. The portions of the content which have been revised are identified through the use of italic text or in bold, and [email or web address] has neither reviewed nor approved the modified material. All other unmodified content is copyright [facility]. Please see references footnoted in the original [facility] edition 2016 Admission Criteria Met: Yes
[2017-06-29] MEDS: NOVOLOG SUB-Q SCH ×5 (11:56→23:07)
[2017-06-29] MEDS ORDERED: HALDOL ONE (13:01)
[2017-06-29] MEDS ORDERED: HALDOL IM ONE (13:01)
[2017-06-29] MEDS ORDERED: NON-FORMULARY (Lovastatin [Altoprev] 20 MG) PO SCH (18:00)
[2017-06-29] MEDS ORDERED: AMBIEN PO PRN (18:55)
--- NOTE | 2017-06-29 19:03 | Event Note ---
Date: 06/29/17 Patient was agitated, anxious to go, has intermittent paranoid delusions and hallucinations Was evaluated by psych in the emergency room, formal psych evaluation is pending , as patient cannot care for herself And has intermittent hallucination and acute psychotic behavior, we will place her on 1013 status, and follow with psych recommendations tomorrow The above plan is discussed with patient's nurse Mr. Jefferson
[2017-06-29] MEDS: GLUCOPHAGE PO SCH (19:32)
[2017-06-29] MEDS ORDERED: NOVOLOG SUB-Q SCH (22:00)
[2017-06-29] MEDS ORDERED: NON-FORMULARY (Metformin Hcl [Glucophage] 1,000 MG) PO SCH (22:00)
[2017-06-29] MEDS ORDERED: ZOCOR PO SCH (22:00)
[2017-06-30 05:42] LABS: Anion Gap 22 mmol/L; BUN/Creatinine Ratio 11.66; Blood Urea Nitrogen 7 mg/dL (7-17); Calcium 9.6 mg/dL (8.4-10.2); Carbon Dioxide 23 mmol/L (22-30); Chloride 98.8 mmol/L (98-107); Glucose 173 mg/dL (65-100); Potassium 3.5 mmol/L (3.6-5.0); Sodium 140 mmol/L (137-145)
[2017-06-30 05:45] LABS: Basophils % (Auto) 0.9 % (0.0-1.8); Eosinophils % (Auto) 1.4 % (0.0-4.3); Hematocrit 40.9 % (30.3-42.9); Mean Corpuscular HGB Conc 34 % (30-34); Mean Corpuscular Hemoglobin 29 pg (28-32); Mean Corpuscular Volume 86 fl (79-97); Platelet Count 166 K/mm3 (140-440); Red Blood Count 4.77 M/mm3 (3.65-5.03); Red Cell Distribution Width 14.5 % (13.2-15.2); White Blood Count 6.2 K/mm3 (4.5-11.0)
[2017-06-30] MEDS ORDERED: LEXISCAN IV ONE ×2 (08:09→08:11)
[2017-06-30] MEDS ORDERED: BABY ASPIRIN PO SCH (10:00)
[2017-06-30] MEDS: NOVOLOG SUB-Q SCH ×2 (10:18→13:12)
[2017-06-30] MEDS: GLUCOPHAGE PO SCH (10:21)
[2017-06-30] MEDS ORDERED: K-DUR PO ONE ×2 (10:59→14:00)
[2017-06-30 11:28] VITALS: BP 115/82
--- NOTE | 2017-06-30 11:37 | Discharge Summary ---
Providers - Providers Date of Admission: 06/29/17 10:14 Date of discharge: 06/30/17 Attending physician: TRINA HUNT 06/29/17 13:31 psychiatry consult [Consult to Mental Health] [CONS] Routine Reason For Exam: psychosis/hallucinations Place consult to:: distribution engineering technologist Primary care physician: BOX BLANK MACHINE OPERATOR HELPER Hospitalization Reason for admission: chest pain Condition: Stable Hospital course: Chest pain We will admit to telemetry 12-lead EKG Normal sinus rhythm with heart rate of 72, we also get another EKG ordered for any changes have taken since the first obtain Serial cardiac enzymes negative X3 Fluid hydration Stress test Lexiscan ordered Start on aspirin Controlled with morphine Hypertension IV hydralazine for SBP greater than 160 Closely monitor blood pressure Diabetes mellitus Sliding scale insulin/NovoLog Accu-Chek before meals and at bedtime ADA consistent carbohydrate/cardiac diet Brief Psychotic Episode with questionable hallucinations Mental health evaluation Hyperlipidemia we will resume home antilipid medications Discussed with the patient about the importance of physical exercise, low fat foods to improve cardiovascular disease. DVT prophylaxis Lovenox Disposition: DC- TO HOME OR SELFCARE Time spent for discharge: 32 min - Discharge Diagnoses (1) Chest pain Status: Acute Qualifiers: Chest pain type: C Ischemic chest pain type: I (2) H/O schizophrenia Status: Acute (3) Type 2 diabetes mellitus Status: Acute Qualifiers: Diabetes mellitus complication status: D Diabetes mellitus complication detail: D Diabetic retinopathy severity: D Proliferative retinopathy type: P Diabetes mellitus macular edema: D Diabetes mellitus alf insulin use : D Laterality: L Chronic kidney disease stage: C (4) Dyslipidemia Status: Acute Core Measure Documentation - Palliative Care Palliative Care/ Comfort Measures: Not Applicable - Core Measures Any of the following diagnoses?: none Exam - Constitutional Vitals: Temp Pulse Resp BP Pulse Ox 98.6 F 94 H 18 115/82 91 06/30/17 11:27 06/30/17 11:27 06/30/17 11:27 06/30/17 11:27 06/30/17 11:27 General appearance: Present: no acute distress, well-nourished - EENT Eyes: Present: PERRL, EOM intact - Neck Neck: Present: supple, normal ROM - Respiratory Respiratory effort: normal Respiratory: bilateral: diminished, negative: rales, rhonchi, wheezing - Cardiovascular Rhythm: regular Heart Sounds: Present: S1 & S2 - Extremities Extremities: no ischemia, No edema Peripheral Pulses: within normal limits - Abdominal General gastrointestinal: Present: soft, non-tender, non-distended, normal bowel sounds - Integumentary Integumentary: Present: clear, warm - Musculoskeletal Musculoskeletal: strength equal bilaterally - Psychiatric Psychiatric: appropriate mood/affect, cooperative - Neurologic Neurologic: CNII-XII intact, moves all extremities Plan Activity: advance as tolerated Diet: diabetic Additional Instructions: Behavioral health 2-3 days. Discussed with patient's son, advised the patient to see a psychiatrist for her psych needs upon discharge Follow up with: PRIMARY CARE, [Primary Care Provider] - 3-5 Days PETE JUAREZ MD [Staff Physician] - 7 Days Prescriptions: Lovastatin [Altoprev] 20 mg PO QPM #30 tab.er.24h Metformin HCl [Glucophage] 1,000 mg PO BID #60 tablet
--- NOTE | 2017-07-02 06:18 | Treadmill Report ---
MYOCARDIAL PERFUSION SCAN REPORT PROCEDURE PERFORMED: Myocardial perfusion scan. IMPRESSION: Myocardial perfusion scan was done using the standard protocol. The rest and stress images were reviewed. FINDINGS: 1. Homogeneous uptake of tracer noted in the rest and stress images. 2. Comparison of the rest and stress images reveals no fixed or reversible defect suggestive of infarct or ischemia. 3. Gated analysis reveals normal wall motion with LVEF of 68%. 4. There appears to be no significant right ventricular wall motion abnormality noted. 5. This is a low-risk study. 6. This is a normal myocardial perfusion scan. JOB# [id number] BHAVIN/ELIDA
== END 2017-06-30 13:20 | disposition home or self-care (01) | DRG 313 ==
LOC: ED 07:41 → 4A 10:14 → EEVIPCON 10:14 → 4A 15:14
PROVIDERS: ADMIT Internal Medicine; ATTEND Internal Medicine
DX: R07.9 Chest pain, unspecified (principal); F23 Brief psychotic disorder; I10 Essential (primary) hypertension; E11.9 Type 2 diabetes mellitus without complications; E78.5 Hyperlipidemia, unspecified; F17.210 Nicotine dependence, cigarettes, uncomplicated; Z82.49 Family history of ischemic heart disease and other diseases of the circulatory system; F20.9 Schizophrenia, unspecified
CPT/HCPCS: 36415; 71010; 78452; 80048; 80074; 80307; 82962; 83036; 83690; 84484; 85025; 85379; 93005; 93010; 93017; 93306; 96372; A9502; J1630; J1815; J2785

== ENCOUNTER 2017-10-15 07:43 | Emergency (ER) | payer OTHER ==
[2017-10-15 08:29] LABS: Basophils % (Auto) 1.2 % (0.0-1.8); Eosinophils % (Auto) 3.2 % (0.0-4.3); Hematocrit 42.3 % (30.3-42.9); Hemoglobin 14.1 gm/dl (10.1-14.3); Mean Corpuscular HGB Conc 33 % (30-34); Mean Corpuscular Hemoglobin 29 pg (28-32); Mean Corpuscular Volume 87 fl (79-97); Platelet Count 148 K/mm3 (140-440); Red Blood Count 4.89 M/mm3 (3.65-5.03); Red Cell Distribution Width 14.3 % (13.2-15.2); White Blood Count 5.2 K/mm3 (4.5-11.0)
[2017-10-15 08:38] LABS: Anion Gap 20 mmol/L; BUN/Creatinine Ratio 14; Blood Urea Nitrogen 10 mg/dL (7-17); Calcium 9.2 mg/dL (8.4-10.2); Carbon Dioxide 25 mmol/L (22-30); Chloride 98.9 mmol/L (98-107); Glucose 367 mg/dL (65-100); Sodium 140 mmol/L (137-145)
[2017-10-15] MEDS ORDERED: NACL 0.9% 1000 ML 1,000 ML IV ONE ×2 (10:44→10:48)
--- NOTE | 2017-10-15 10:49 | Emergency Department Report ---
ED General Adult HPI - General Chief complaint: Dizziness Stated complaint: DIZZY Time Seen by Provider: 10/15/17 10:25 Source: patient, EMS Mode of arrival: Wheelchair Limitations: Language Barrier - History of Present Illness Initial comments: Patient is a 52-year-old female past medical history of diabetes and hyperlipidemia who presents with lightheadedness that occurred earlier on today. Patient states that as she was walking she felt lightheaded she states that she has not had her metformin for the last 2 or 3 months. Patient was concerned about her lightheadedness so she called EMS. Patient had no syncopal episode. Patient says lightheadedness is moderate lying down makes it better standing up makes it worse. Patient denies having any chest pain or any shortness of breath or any leg swelling. Patient denies having any vertigo sensation. Since blood sugar was 302 by EMS. - Related Data Previous Rx's Medication Instructions Recorded Last Taken Type Lisinopril [Zestril] 20 mg PO QDAY #30 tablet 10/15/17 Unknown Rx Lovastatin [Altoprev] 20 mg PO QPM #30 tab.er.24h 10/15/17 Unknown Rx Metformin HCl [Glucophage] 1,000 mg PO BID #60 tablet 10/15/17 Unknown Rx Allergies Allergy/AdvReac Type Severity Reaction Status Date / Time No Known Allergies Allergy Unverified 02/01/17 22:40 ED Review of Systems ROS: Stated complaint: DIZZY Other details as noted in HPI Constitutional: denies: chills, fever Eyes: denies: eye pain, eye discharge, vision change ENT: denies: ear pain, throat pain Respiratory: denies: cough, shortness of breath, wheezing Cardiovascular: denies: chest pain, palpitations Endocrine: no symptoms reported Gastrointestinal: denies: abdominal pain, nausea, diarrhea Genitourinary: denies: urgency, dysuria, discharge Musculoskeletal: denies: back pain, joint swelling, arthralgia Skin: denies: rash, lesions Neurological: other (lightheadedness ). denies: headache, weakness, paresthesias Psychiatric: denies: anxiety, depression Hematological/Lymphatic: denies: easy bleeding, easy bruising ED Past Medical Hx - Past Medical History Previous Medical History?: Yes Hx Hypertension: Yes Hx Diabetes: Yes Additional medical history: hyperlipidemia - Surgical History Past Surgical History?: Yes Hx Cholecystectomy: Yes Additional Surgical History: gallbladder, L ovary removal - Social History Smoking Status: Never Smoker Substance Use Type: Alcohol - Medications Home Medications: Home Medications Medication Instructions Recorded Confirmed Last Taken Type Lisinopril [Zestril] 20 mg PO QDAY #30 tablet 10/15/17 Unknown Rx Lovastatin [Altoprev] 20 mg PO QPM #30 tab.er.24h 10/15/17 Unknown Rx Metformin HCl [Glucophage] 1,000 mg PO BID #60 tablet 10/15/17 Unknown Rx ED Physical Exam - General Limitations: Language Barrier General appearance: alert, in no apparent distress - Head Head exam: Present: atraumatic, normocephalic - Eye Eye exam: Present: normal appearance - ENT ENT exam: Present: mucous membranes moist - Neck Neck exam: Present: normal inspection - Respiratory Respiratory exam: Present: normal lung sounds bilaterally. Absent: respiratory distress - Cardiovascular Cardiovascular Exam: Present: regular rate, normal rhythm. Absent: systolic murmur, diastolic murmur, rubs, gallop - GI/Abdominal GI/Abdominal exam: Present: soft, normal bowel sounds - Extremities Exam Extremities exam: Present: normal inspection - Back Exam Back exam: Present: normal inspection - Neurological Exam Neurological exam: Present: alert, oriented X3 - Psychiatric Psychiatric exam: Present: normal affect, normal mood - Skin Skin exam: Present: warm, dry, intact, normal color. Absent: rash ED Course Vital Signs 10/15/17 07:49 Temperature 98.1 F Pulse Rate 86 Respiratory 18 Rate Blood Pressure 115/76 O2 Sat by Pulse 95 Oximetry ED Medical Decision Making - Lab Data Result diagrams: 10/15/17 08:04 10/15/17 08:08 Lab Results 10/15/17 10/15/17 10/15/17 Range/Units 08:04 08:07 08:08 WBC 5.2 (4.5-11.0) K/mm3 RBC 4.89 (3.65-5.03) M/mm3 Hgb 14.1 (10.1-14.3) gm/dl Hct 42.3 (30.3-42.9) % MCV 87 (79-97) fl MCH 29 (28-32) pg MCHC 33 (30-34) % RDW 14.3 (13.2-15.2) % Plt Count 148 (140-440) K/mm3 Lymph % (Auto) 39.1 H (13.4-35.0) % [place] % (Auto) 6.4 (0.0-7.3) % Eos % (Auto) 3.2 (0.0-4.3) % Baso % (Auto) 1.2 (0.0-1.8) % Lymph # 2.0 (1.2-5.4) K/mm3 [place] # 0.3 (0.0-0.8) K/mm3 Eos # 0.2 (0.0-0.4) K/mm3 Baso # 0.1 (0.0-0.1) K/mm3 Seg Neutrophils % 50.1 (40.0-70.0) % Seg Neutrophils # 2.6 (1.8-7.7) K/mm3 VBG pH 7.356 (7.320-7.420) Sodium 140 (137-145) mmol/L Potassium 4.0 (3.6-5.0) mmol/L Chloride 98.9 (98-107) mmol/L Carbon Dioxide 25 (22-30) mmol/L Anion Gap 20 mmol/L BUN 10 (7-17) mg/dL Creatinine 0.7 (0.7-1.2) mg/dL Estimated GFR > 60 ml/min BUN/Creatinine Ratio 14 % Glucose 367 H (65-100) mg/dL Calcium 9.2 (8.4-10.2) mg/dL - Medical Decision Making Chief Medical diagnosis: Hyperglycemia Differential medical diagnosis: Hypotension, DKA, tension headache I will give patient IV fluids, EKG, CBC, CMP and point of care glucose. Patient's blood sugar has gone down with IV fluids she is feeling better I will send the patient home with lisinopril, metformin and atorvastatin. Discussed final patient patient agrees with plan. Critical care attestation.: If time is entered above; I have spent that time in minutes in the direct care of this critically ill patient, excluding procedure time. ED Disposition Clinical Impression: Type 2 diabetes mellitus Qualifiers: Diabetes mellitus complication status: with hyperglycemia Diabetes mellitus care home insulin use: without care home use Qualified Code(s): E11.65 - Type 2 diabetes mellitus with hyperglycemia Disposition: TO HOME OR SELFCARE Is pt being admited?: No Does the pt Need Aspirin: No Condition: Stable Instructions: Diabetes Mellitus Type 2 in Adults (ED) Prescriptions: Lisinopril [Zestril] 20 mg PO QDAY #30 tablet Lovastatin [Altoprev] 20 mg PO QPM #30 tab.er.24h Metformin HCl [Glucophage] 1,000 mg PO BID #60 tablet Referrals: MARTHA VALERA MD [Staff Physician] - 3-5 Days
[2017-10-15 12:46] LABS: Mucus,Urine FEW /HPF
[2017-10-15 12:51] LABS: Bilirubin,Urine NEG (Negative); Blood,Urine NEG (Negative); Ketones,Urine TR mg/dL (Negative); Leukocyte Esterase,Urine NEG (Negative); Nitrite,Urine NEG (Negative); Protein,Urine <15 mg/dL mg/dL (Negative); Urobilinogen,Urine < 2.0 mg/dL (<2.0)
[2017-10-15 12:54] LABS: WBC,Urine < 1.0 /HPF (0.0-6.0)
[2017-10-15 14:13] VITALS: BP 122/78
== END 2017-10-15 14:20 | disposition home or self-care (01) ==
LOC: ED 07:43
DX: E11.9 Type 2 diabetes mellitus without complications (principal); I10 Essential (primary) hypertension; E78.5 Hyperlipidemia, unspecified
CPT/HCPCS: 36415; 80048; 81001; 82805; 82962; 85025; 93005; 93010; 96360; 99284; J7030

== ENCOUNTER 2017-11-12 19:07 | Emergency (ER) | payer OTHER ==
[2017-11-12 20:27] LABS: Basophils % (Auto) 0.9 % (0.0-1.8); Eosinophils % (Auto) 4.4 % (0.0-4.3); Hematocrit 39.8 % (30.3-42.9); Hemoglobin 13.7 gm/dl (10.1-14.3); Mean Corpuscular HGB Conc 34 % (30-34); Mean Corpuscular Hemoglobin 29 pg (28-32); Mean Corpuscular Volume 85 fl (79-97); Platelet Count 167 K/mm3 (140-440); Red Blood Count 4.68 M/mm3 (3.65-5.03); Red Cell Distribution Width 13.7 % (13.2-15.2); White Blood Count 6.6 K/mm3 (4.5-11.0)
[2017-11-12 20:34] LABS: Anion Gap 20 mmol/L; BUN/Creatinine Ratio 13; Blood Urea Nitrogen 8 mg/dL (7-17); Calcium 8.9 mg/dL (8.4-10.2); Carbon Dioxide 23 mmol/L (22-30); Chloride 97.6 mmol/L (98-107); Glucose 335 mg/dL (65-100); Potassium 3.9 mmol/L (3.6-5.0); Sodium 137 mmol/L (137-145)
[2017-11-13 07:11] LABS: Bacteria,Urine 1+ /HPF (Negative); Bilirubin,Urine NEG (Negative); Blood,Urine NEG (Negative); Ketones,Urine NEG (Negative); Leukocyte Esterase,Urine MOD (Negative); Mucus,Urine 2+ /HPF; Nitrite,Urine NEG (Negative); Protein,Urine <15 mg/dL mg/dL (Negative); Urobilinogen,Urine < 2.0 mg/dL (<2.0)
[2017-11-13] MEDS ORDERED: NACL 0.9% 1000 ML 1,000 ML IV ONE (08:35)
[2017-11-13] MEDS ORDERED: NORCO 5/325 PO ONE (08:38)
--- NOTE | 2017-11-13 09:46 | Emergency Department Report ---
ED General Adult HPI - General Chief complaint: Hyperglycemia Stated complaint: RT EYE PAIN/HYPERGLYCEMIA Time Seen by Provider: 11/13/17 08:33 Source: patient, EMS Mode of arrival: Wheelchair Limitations: No Limitations - History of Present Illness Initial comments: Patient presents with multiple complaints. She admits that she is not taking her metformin. She called EMS this morning because her sugar is high. She has no explanation for her medical noncompliance. She states that sometimes her right eye hurts when her sugar goes up but it is not hurting now. She was transported by EMS and found to have a blood glucose of 357. At the time of my evaluation she has no complaints. -: Gradual Improves with: none Worsens with: none Associated Symptoms: denies other symptoms (except as above) - Related Data Previous Rx's Medication Instructions Recorded Last Taken Type Lisinopril [Zestril] 20 mg PO QDAY #30 tablet 10/15/17 Unknown Rx Lovastatin [Altoprev] 20 mg PO QPM #30 tab.er.24h 10/15/17 Unknown Rx Metformin HCl [Glucophage] 1,000 mg PO BID #60 tablet 10/15/17 Unknown Rx Metformin HCl 1,000 mg PO BID #60 tablet 11/13/17 Unknown Rx Nitrofurantoin Monohyd/M-Cryst 100 mg PO BID #10 capsule 11/13/17 Unknown Rx [Macrobid 100 mg Capsule] Allergies Allergy/AdvReac Type Severity Reaction Status Date / Time No Known Allergies Allergy Unverified 02/01/17 22:40 ED Review of Systems ROS: Stated complaint: RT EYE PAIN/HYPERGLYCEMIA Other details as noted in HPI Constitutional: denies: chills, fever Eyes: as per HPI, eye pain. denies: eye discharge, vision change ENT: other (no acute change in vision). denies: ear pain, throat pain Respiratory: denies: cough, shortness of breath, wheezing Cardiovascular: denies: chest pain, palpitations Endocrine: no symptoms reported Gastrointestinal: denies: abdominal pain, nausea, diarrhea Genitourinary: denies: urgency, dysuria, discharge Musculoskeletal: denies: back pain, joint swelling, arthralgia Skin: denies: rash, lesions Neurological: denies: headache, weakness, paresthesias Psychiatric: denies: anxiety, depression Hematological/Lymphatic: denies: easy bleeding, easy bruising ED Past Medical Hx - Past Medical History Previous Medical History?: Yes Hx Hypertension: Yes Hx Diabetes: Yes Additional medical history: hyperlipidemia - Surgical History Hx Cholecystectomy: Yes Additional Surgical History: gallbladder, L ovary removal - Social History Smoking Status: Former Smoker - Medications Home Medications: Home Medications Medication Instructions Recorded Confirmed Last Taken Type Lisinopril [Zestril] 20 mg PO QDAY #30 tablet 10/15/17 Unknown Rx Lovastatin [Altoprev] 20 mg PO QPM #30 tab.er.24h 10/15/17 Unknown Rx Metformin HCl [Glucophage] 1,000 mg PO BID #60 tablet 10/15/17 Unknown Rx Metformin HCl 1,000 mg PO BID #60 tablet 11/13/17 Unknown Rx Nitrofurantoin Monohyd/M-Cryst 100 mg PO BID #10 capsule 11/13/17 Unknown Rx [Macrobid 100 mg Capsule] ED Physical Exam - General Limitations: No Limitations General appearance: alert, in no apparent distress - Head Head exam: Present: atraumatic, normocephalic - Eye Eye exam: Present: normal appearance, PERRL, EOMI, scleral icterus - ENT ENT exam: Present: mucous membranes moist - Neck Neck exam: Present: normal inspection. Absent: tenderness, meningismus - Respiratory Respiratory exam: Present: normal lung sounds bilaterally. Absent: respiratory distress - Cardiovascular Cardiovascular Exam: Present: regular rate, normal rhythm. Absent: systolic murmur, diastolic murmur, rubs, gallop - GI/Abdominal GI/Abdominal exam: Present: soft, normal bowel sounds. Absent: distended, tenderness, guarding, rebound, rigid - Extremities Exam Extremities exam: Present: normal inspection - Back Exam Back exam: Present: normal inspection - Neurological Exam Neurological exam: Present: alert, oriented X3, CN II-XII intact. Absent: motor sensory deficit - Psychiatric Psychiatric exam: Present: normal mood, flat affect - Skin Skin exam: Present: warm, dry, intact, normal color. Absent: rash ED Course Vital Signs 11/12/17 11/13/17 19:53 07:59 Temperature 98.3 F 98.2 F Pulse Rate 100 H 90 Respiratory 20 18 Rate Blood Pressure 110/74 Blood Pressure 135/91 [Left] O2 Sat by Pulse 97 100 Oximetry - Reevaluation(s) Reevaluation #1: Patient was given IV fluid and a small dose of IV insulin. Importance of medical compliance was emphasized. She will be referred to the primary care setting. It is also recommended that she gets a complete eye exam. 11/13/17 09:46 ED Medical Decision Making - Lab Data Result diagrams: 11/12/17 20:03 11/12/17 20:03 Laboratory Results - last 24 hr 11/12/17 11/12/17 11/12/17 20:03 20:03 20:03 WBC 6.6 RBC 4.68 Hgb 13.7 Hct 39.8 MCV 85 MCH 29 MCHC 34 RDW 13.7 Plt Count 167 Lymph % (Auto) 36.4 H [place] % (Auto) 5.8 Eos % (Auto) 4.4 H Baso % (Auto) 0.9 Lymph # 2.4 [place] # 0.4 Eos # 0.3 Baso # 0.1 Seg Neutrophils % 52.5 Seg Neutrophils # 3.4 VBG pH Sodium 137 Potassium 3.9 Chloride 97.6 L Carbon Dioxide 23 Anion Gap 20 BUN 8 Creatinine 0.6 L Estimated GFR > 60 BUN/Creatinine Ratio 13 Glucose 335 H Calcium 8.9 HCG, Qual Negative Urine Color Urine Turbidity Urine pH Ur Specific [place] Urine Protein Urine Glucose (UA) Urine Ketones Urine Blood Urine Nitrite Urine Bilirubin Urine Urobilinogen Ur Leukocyte Esterase Urine WBC (Auto) Urine RBC (Auto) U Epithel Cells (Auto) Urine Bacteria (Auto) Urine Mucus 11/12/17 11/13/17 20:03 06:50 WBC RBC Hgb Hct MCV MCH MCHC RDW Plt Count Lymph % (Auto) [place] % (Auto) Eos % (Auto) Baso % (Auto) Lymph # [place] # Eos # Baso # Seg Neutrophils % Seg Neutrophils # VBG pH 7.372 Sodium Potassium Chloride Carbon Dioxide Anion Gap BUN Creatinine Estimated GFR BUN/Creatinine Ratio Glucose Calcium HCG, Qual Urine Color Yellow Urine Turbidity Clear Urine pH 5.0 Ur Specific [place] 1.020 Urine Protein <15 mg/dl Urine Glucose (UA) >=500 Urine Ketones Neg Urine Blood Neg Urine Nitrite Neg Urine Bilirubin Neg Urine Urobilinogen < 2.0 Ur Leukocyte Esterase Mod Urine WBC (Auto) 5.0 Urine RBC (Auto) 6.0 U Epithel Cells (Auto) 4.0 Urine Bacteria (Auto) 1+ Urine Mucus 2+ Critical care attestation.: If time is entered above; I have spent that time in minutes in the direct care of this critically ill patient, excluding procedure time. ED Disposition Clinical Impression: Medical non-compliance, H/O schizophrenia Hyperglycemia due to type 2 diabetes mellitus Qualifiers: Diabetes mellitus half-way insulin use: without architectural administrative assistant use Qualified Code(s ): E11.65 - Type 2 diabetes mellitus with hyperglycemia UTI (urinary tract infection) Qualifiers: Urinary tract infection type: site unspecified Hematuria presence: without hematuria Qualified Code(s): N39.0 - Urinary tract infection, site not specified Disposition: TO HOME OR SELFCARE Is pt being admited?: No Does the pt Need Aspirin: No Condition: Stable Instructions: Diabetes Mellitus Type 2 in Adults (ED), Urinary Tract Infection in Women (ED) Additional Instructions: Follow-up on your urine culture result. You must take your metformin. I have also prescribed an antibiotic. Return any acute change or problem. Prescriptions: Metformin HCl 1,000 mg PO BID #60 tablet Nitrofurantoin Monohyd/M-Cryst [Macrobid 100 mg Capsule] 100 mg PO BID #10 capsule Referrals: GARRISON ORTIZ MD [Primary Care Provider] - 2-3 Days Time of Disposition: 09:48
[2017-11-13 10:27] VITALS: BP 122/82
== END 2017-11-13 10:15 | disposition home or self-care (01) ==
LOC: ED 19:07
DX: E11.65 Type 2 diabetes mellitus with hyperglycemia (principal); N39.0 Urinary tract infection, site not specified; H57.11 Ocular pain, right eye; F20.9 Schizophrenia, unspecified; I10 Essential (primary) hypertension; E78.5 Hyperlipidemia, unspecified; Z91.14 Patient's other noncompliance with medication regimen; Z87.891 Personal history of nicotine dependence
CPT/HCPCS: 36415; 80048; 81001; 82805; 84703; 85025; 87086; 96361; 96374; 99284; J7030; J1815

== ENCOUNTER 2017-11-13 11:22 | Emergency (ER) | payer SELFPAY ==
--- NOTE | 2017-11-13 13:04 | Emergency Department Report ---
ED Syncope HPI - General Chief Complaint: Medical Clearance Stated Complaint: MEDICAL CLEARANCE Time Seen by Provider: 11/13/17 12:57 Source: patient Exam Limitations: no limitations - History of Present Illness Initial Comments: 52 yo female with type ii diabetes who was seen at the hospital and took a bus to go home, on the way home she felt dizzy and had a syncopal event. She was ana in by EMS to be evaluated . She normally lives with her son but he is away on vacation . Timing/Prior Episodes: single episode today Precipitating Factors: Positive: lightheadedness Context: standing, other (fatigues) Loss of Consciousness: dazed Current Symptoms: back to normal - Related Data Allergies/Adverse Reactions: Allergies No Known Allergies Allergy (Unverified 02/01/17 22:40) Home Medications: Ambulatory Orders Lisinopril [Zestril] 20 mg PO QDAY #30 tablet 10/15/17 Lovastatin [Altoprev] 20 mg PO QPM #30 tab.er.24h 10/15/17 Metformin HCl [Glucophage] 1,000 mg PO BID #60 tablet 10/15/17 Metformin HCl 1,000 mg PO BID #60 tablet 11/13/17 Nitrofurantoin Monohyd/M-Cryst [Macrobid 100 mg Capsule] 100 mg PO BID #10 capsule 11/13/17 ED Review of Systems ROS: Stated complaint: MEDICAL CLEARANCE Other details as noted in HPI Constitutional: denies: chills, fever Eyes: denies: eye pain, eye discharge, vision change ENT: denies: ear pain, throat pain Respiratory: denies: cough, shortness of breath, wheezing Cardiovascular: denies: chest pain, palpitations Endocrine: no symptoms reported Gastrointestinal: denies: abdominal pain, nausea, diarrhea Genitourinary: denies: urgency, dysuria, discharge Musculoskeletal: denies: back pain, joint swelling, arthralgia Skin: denies: rash, lesions Neurological: other (LIGHTHEADEDNESS). denies: headache, paresthesias Psychiatric: denies: anxiety, depression Hematological/Lymphatic: denies: easy bleeding, easy bruising ED Past Medical Hx - Past Medical History Previous Medical History?: Yes Hx Hypertension: Yes Hx Diabetes: Yes Additional medical history: hyperlipidemia - Surgical History Past Surgical History?: Yes Hx Cholecystectomy: Yes Additional Surgical History: gallbladder, L ovary removal - Family History Family history: hypertension - Social History Smoking Status: Former Smoker - Medications Home Medications: Home Medications Medication Instructions Recorded Confirmed Last Taken Type Lisinopril [Zestril] 20 mg PO QDAY #30 tablet 10/15/17 11/13/17 Unknown Rx Lovastatin [Altoprev] 20 mg PO QPM #30 tab.er.24h 10/15/17 11/13/17 Unknown Rx Metformin HCl [Glucophage] 1,000 mg PO BID #60 tablet 10/15/17 11/13/17 Unknown Rx Metformin HCl 1,000 mg PO BID #60 tablet 11/13/17 11/13/17 Unknown Rx Nitrofurantoin Monohyd/M-Cryst 100 mg PO BID #10 capsule 11/13/17 11/13/17 Unknown Rx [Macrobid 100 mg Capsule] ED Physical Exam - General Limitations: Language Barrier General appearance: alert, in no apparent distress - Head Head exam: Present: atraumatic, normocephalic - Eye Eye exam: Present: normal appearance, EOMI - ENT ENT exam: Present: mucous membranes moist - Neck Neck exam: Present: normal inspection, full ROM - Respiratory Respiratory exam: Present: normal lung sounds bilaterally. Absent: respiratory distress - Cardiovascular Cardiovascular Exam: Present: regular rate, normal rhythm. Absent: systolic murmur, diastolic murmur, rubs, gallop - GI/Abdominal GI/Abdominal exam: Present: soft, normal bowel sounds - Rectal Rectal exam: Present: deferred - Extremities Exam Extremities exam: Present: normal inspection, full ROM - Back Exam Back exam: Present: normal inspection, full ROM - Neurological Exam Neurological exam: Present: alert, oriented X3, CN II-XII intact - Psychiatric Psychiatric exam: Present: normal affect, normal mood - Skin Skin exam: Present: warm, dry, intact, normal color. Absent: rash ED Course Vital Signs 11/13/17 11/13/17 11/13/17 11:40 11:52 12:37 Temperature 98.5 F Pulse Rate 75 77 Respiratory 16 16 16 Rate Blood Pressure 138/104 Blood Pressure 104/76 [Left] O2 Sat by Pulse 96 97 Oximetry ED Medical Decision Making - Lab Data Result diagrams: 11/13/17 13:14 11/13/17 13:14 - EKG Data -: EKG Interpreted by Me EKG shows normal: sinus rhythm, axis, intervals, QRS complexes - EKG Data Interpretation: nonspecific ST-T wave chase - Radiology Data Radiology results: report reviewed (CXR:NORMAL) - Medical Decision Making PT'S DIZZINESS RESOLVED AND I WILL D/C HER HOME. Critical care attestation.: If time is entered above; I have spent that time in minutes in the direct care of this critically ill patient, excluding procedure time. ED Disposition Clinical Impression: Dizziness, nonspecific Hyperglycemia due to type 2 diabetes mellitus Qualifiers: Diabetes mellitus group home insulin use: without long term care pharmacist use Qualified Code(s ): E11.65 - Type 2 diabetes mellitus with hyperglycemia Disposition: DC- TO HOME OR SELFCARE Is pt being admited?: No Does the pt Need Aspirin: No Condition: Stable Instructions: Diabetic Hyperglycemia (ED), Dizziness (ED), Diabetes Mellitus Type 2 in Adults (ED) Additional Instructions: PLEASE SEE YOUR DOCTOR TOMORROW OR SOON POSSIBLE. RETURN TO THE ER IF YOU BECOME DIZZY AGAIN OR IF YOU HAVE ANY CONCERNS Referrals: GARRISON ORTIZ MD [Primary Care Provider] - 3-5 Days Time of Disposition: 16:00
[2017-11-13 13:33] LABS: Basophils % (Auto) 0.8 % (0.0-1.8); Eosinophils % (Auto) 3.2 % (0.0-4.3); Hematocrit 39.3 % (30.3-42.9); Hemoglobin 13.3 gm/dl (10.1-14.3); Mean Corpuscular HGB Conc 34 % (30-34); Mean Corpuscular Hemoglobin 29 pg (28-32); Mean Corpuscular Volume 86 fl (79-97); Platelet Count 152 K/mm3 (140-440); Red Blood Count 4.57 M/mm3 (3.65-5.03); Red Cell Distribution Width 13.8 % (13.2-15.2); White Blood Count 5.6 K/mm3 (4.5-11.0)
[2017-11-13 13:57] LABS: Alanine Aminotransferase 14 units/L (7-56); Albumin 3.5 g/dL (3.9-5); Albumin/Globulin Ratio 1.3 %; Alkaline Phosphatase 96 units/L (35-129); Anion Gap 18 mmol/L; BUN/Creatinine Ratio 12; Blood Urea Nitrogen 7 mg/dL (7-17); Calcium 8.6 mg/dL (8.4-10.2); Carbon Dioxide 23 mmol/L (22-30); Chloride 104.5 mmol/L (98-107); Creatine Kinase 44 units/L (30-135); Glucose 238 mg/dL (65-100); Potassium 4.1 mmol/L (3.6-5.0); Sodium 141 mmol/L (137-145); Total Protein 6.1 g/dL (6.3-8.2)
[2017-11-13 14:03] LABS: Creatine Kinase MB < 1.0 ng/mL (0.0-4.0)
[2017-11-13 16:08] VITALS: BP 121/70
--- NOTE | 2017-11-13 16:09 | XRay Report ---
XRAY CHEST TWO VIEWS: 11/13/17 13:27 CLINICAL: Cough. COMPARISON: 06/29/17 FINDINGS: Normal heart and pulmonary vasculature. The lungs are normally expanded and clear.The bones and soft tissues are unremarkable. IMPRESSION: Normal chest.
== END 2017-11-13 16:51 | disposition home or self-care (01) ==
LOC: ED 11:22
DX: E11.65 Type 2 diabetes mellitus with hyperglycemia (principal); I10 Essential (primary) hypertension; E78.5 Hyperlipidemia, unspecified; Z87.891 Personal history of nicotine dependence
CPT/HCPCS: 36415; 71020; 80053; 82550; 82553; 82962; 84484; 85025; 85379; 93005; 93010; 99284

== ENCOUNTER 2017-11-15 06:54 | Emergency (ER) | payer SELFPAY ==
[2017-11-15 07:38] VITALS: BP 103/69
== END 2017-11-15 10:52 | disposition left against medical advice (07) ==
LOC: ED 06:54
DX: R51 Headache (principal); Z53.21 Procedure and treatment not carried out due to patient leaving prior to being seen by health care provider

== ENCOUNTER 2017-11-26 05:19 | Emergency (ER) | payer MEDICARE, OTHER ==
[2017-11-26 06:20] VITALS: BP 129/85
--- NOTE | 2017-11-26 08:39 | Emergency Department Report ---
ED Eye Problem HPI - General Chief complaint: Eye Problems Stated complaint: RIGHT EYE PAIN- POINTING TO BONE BELOW R EYE; SEE DR ANDERSON NOTE FROM PRIOR VISIT Time Seen by Provider: 11/26/17 07:49 Source: patient, old records reviewed Mode of arrival: Ambulatory Limitations: No Limitations - History of Present Illness MD chief complaint: other (R ORBIT PAIN) -: week(s) Onset Description: gradual Location: right eye Place: home If Injury: none If Pain, Quality: other (NO PAIN NOW) Consistency: intermittent Associated Symptoms: denies: headache, neck pain, nausea/vomiting, cough, rhinorrhea, fever, shortness of breath Treatments Prior to Arrival: none - Related Data Patient Tetanus UTD: Yes Previous Rx's Medication Instructions Recorded Last Taken Type Lisinopril [Zestril] 20 mg PO QDAY #30 tablet 10/15/17 Unknown Rx Lovastatin [Altoprev] 20 mg PO QPM #30 tab.er.24h 10/15/17 Unknown Rx Metformin HCl [Glucophage] 1,000 mg PO BID #60 tablet 10/15/17 Unknown Rx Metformin HCl 1,000 mg PO BID #60 tablet 11/13/17 Unknown Rx Nitrofurantoin Monohyd/M-Cryst 100 mg PO BID #10 capsule 11/13/17 Unknown Rx [Macrobid 100 mg Capsule] Allergies Allergy/AdvReac Type Severity Reaction Status Date / Time No Known Allergies Allergy Unverified 02/01/17 22:40 ED Review of Systems ROS: Stated complaint: RIGHT EYE PAIN Other details as noted in HPI Comment: NO CONTACT LENS Eyes: other (R ORBIT PAIN) ED Past Medical Hx - Past Medical History Hx Hypertension: Yes Hx Diabetes: Yes Additional medical history: hyperlipidemia. NON COMP - Surgical History Hx Cholecystectomy: Yes Additional Surgical History: gallbladder, L ovary removal - Social History Smoking Status: Never Smoker Substance Use Type: None - Medications Home Medications: Home Medications Medication Instructions Recorded Confirmed Last Taken Type Lisinopril [Zestril] 20 mg PO QDAY #30 tablet 10/15/17 11/13/17 Unknown Rx Lovastatin [Altoprev] 20 mg PO QPM #30 tab.er.24h 10/15/17 11/13/17 Unknown Rx Metformin HCl [Glucophage] 1,000 mg PO BID #60 tablet 10/15/17 11/13/17 Unknown Rx Metformin HCl 1,000 mg PO BID #60 tablet 11/13/17 11/13/17 Unknown Rx Nitrofurantoin Monohyd/M-Cryst 100 mg PO BID #10 capsule 11/13/17 11/13/17 Unknown Rx [Macrobid 100 mg Capsule] ED Physical Exam - General Limitations: No Limitations General appearance: alert - Head Head exam: Present: atraumatic, normocephalic, normal inspection - Eye Eye exam: Present: normal appearance, PERRL, EOMI, other (SEE NOTE FROM PREVIOUS VISIT). Absent: scleral icterus, conjunctival injection, nystagmus, periorbital swelling, periorbital tenderness - Expanded Eye Exam Expanded Eyelids: Normal Inspection: Right Pupils: Regular, Round: Bilateral, Reactive: Bilateral Sclera/Conjunctival: Normal Inspection: Bilateral Anterior chamber: Normal Inspection: Bilateral Posterior chamber: Normal Inspection: Bilateral Visual acuity (R) = 20/: 30 Visual acuity (L) = 20/: 40 With correction: No (B 20/25) - ENT ENT exam: Present: mucous membranes moist - Neck Neck exam: Present: normal inspection - Respiratory Respiratory exam: Present: normal lung sounds bilaterally - Cardiovascular Cardiovascular Exam: Present: regular rate - GI/Abdominal GI/Abdominal exam: Present: soft - Rectal Rectal exam: Present: deferred - Extremities Exam Extremities exam: Present: normal inspection - Back Exam Back exam: Present: normal inspection, full ROM - Neurological Exam Neurological exam: Present: alert, oriented X3, CN II-XII intact, normal gait, reflexes normal - Psychiatric Psychiatric exam: Present: normal affect, normal mood - Skin Skin exam: Present: warm, dry, intact, normal color. 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 EOM INTACT PERRL NO BLURRED VISION NO EYE PAIN NO SINUS TENDERNESS NO FEVER NO URTI NO COUGH NO EAR PAIN EXPLAINED TO PT THAT IT WAS RECOMMENDED THAT BC OF HER DM THAT SHE SEE DEUCE VASQUEZ WHICH SHE DID NOT VSS NAD NO CRUZ NO CP NO SOB NEURO INTACT NO FOCAL NEURO DEF REPORTS TAKING MEDS DC HOME W OPTHA FOLLOW UP; ALSO INSTRUCTED TO SEE HER PCP ED Medical Decision Making - Medical Decision Making SEE NOTE - Differential Diagnosis CONJUNCTIVITIS V SINUS V RETINOPATHY Critical care attestation.: If time is entered above; I have spent that time in minutes in the direct care of this critically ill patient, excluding procedure time. ED Disposition Clinical Impression: Hyperglycemia due to type 2 diabetes mellitus, Orbital pain Disposition: DC-01 TO HOME OR SELFCARE Is pt being admited?: No Does the pt Need Aspirin: No Condition: Stable Instructions: Diabetes Mellitus Type 2 in Adults (ED), Diabetic Retinopathy (ED ) Additional Instructions: SEE EYE DOCTOR THIS WEEK TAKE YOU MEDICATIONS FOLLOW DIABETIC DIET Referrals: GARRISON ORTIZ MD [Primary Care Provider] - 3-5 Days GRIS JOSÉ MD [Staff Physician] - 3-5 Days Time of Disposition: 08:38
== END 2017-11-26 08:20 | disposition home or self-care (01) ==
LOC: ED 05:19
DX: H57.11 Ocular pain, right eye (principal); E11.65 Type 2 diabetes mellitus with hyperglycemia; I10 Essential (primary) hypertension; E78.5 Hyperlipidemia, unspecified
CPT/HCPCS: 99282

== ENCOUNTER 2017-12-24 19:25 | Emergency (ER) | payer SELFPAY ==
[2017-12-24 22:10] LABS: Basophils % (Auto) 0.9 % (0.0-1.8); Eosinophils # (Auto) 0.1 K/mm3 (0.0-0.4); Eosinophils % (Auto) 2.6 % (0.0-4.3); Hematocrit 44.5 % (30.3-42.9); Hemoglobin 14.9 gm/dl (10.1-14.3); Lymphocytes # (Auto) 2.5 K/mm3 (1.2-5.4); Lymphocytes % (Auto) 43.4 % (13.4-35.0); Mean Corpuscular HGB Conc 34 % (30-34); Mean Corpuscular Hemoglobin 29 pg (28-32); Mean Corpuscular Volume 87 fl (79-97); Monocytes # (Auto) 0.4 K/mm3 (0.0-0.8); Monocytes % (Auto) 7.5 % (0.0-7.3); Platelet Count 166 K/mm3 (140-440); Red Blood Count 5.11 M/mm3 (3.65-5.03); Red Cell Distribution Width 13.9 % (13.2-15.2)
[2017-12-24 22:30] LABS: BUN/Creatinine Ratio 12; Blood Urea Nitrogen 11 mg/dL (7-17); Calcium 9.4 mg/dL (8.4-10.2); Hemolysis Index 6
--- NOTE | 2017-12-25 07:22 | Emergency Department Report ---
HPI - General Chief Complaint: Headache Time Seen by Provider: 12/25/17 07:12 - HPI HPI: Room 22 The patient is a 52-year-old female presenting with a chief complaint of headache. Patient states she's had a headache of her calvarium for the past 2 nights has been intermittent and throbbing in nature. Patient denies nausea/ vomiting or fever. The patient states Tylenol has helped and gives her headache a score of 2/10 currently. Patient denies any other forms of pain Location: Head Duration: Intermittent 2 nights Quality: Throbbing Severity: 2/10 Modifying factors: [see above] Context: [see above] Mode of transportation: [not driving] ED Past Medical Hx - Past Medical History Previous Medical History?: Yes Hx Hypertension: Yes Hx Diabetes: Yes Additional medical history: hyperlipidemia. NON COMP - Surgical History Past Surgical History?: Yes Hx Cholecystectomy: Yes Additional Surgical History: gallbladder, L ovary removal - Family History Family history: no significant - Social History Smoking Status: Never Smoker Substance Use Type: Alcohol (occasional) - Medications Home Medications: Home Medications Medication Instructions Recorded Confirmed Last Taken Type Lisinopril [Zestril] 20 mg PO QDAY #30 tablet 10/15/17 11/13/17 Unknown Rx Lovastatin [Altoprev] 20 mg PO QPM #30 tab.er.24h 10/15/17 11/13/17 Unknown Rx Metformin HCl [Glucophage] 1,000 mg PO BID #60 tablet 10/15/17 11/13/17 Unknown Rx Metformin HCl 1,000 mg PO BID #60 tablet 11/13/17 11/13/17 Unknown Rx Nitrofurantoin Monohyd/M-Cryst 100 mg PO BID #10 capsule 11/13/17 11/13/17 Unknown Rx [Macrobid 100 mg Capsule] Butalb/Acetamin/Caff 50-325-40 2 tab PO Q8HR PRN #20 tablet 12/25/17 Unknown Rx [Fioricet] ED Review of Systems ROS: Stated complaint: HEADACHE Other details as noted in HPI Constitutional: denies: fever Eyes: denies: eye pain ENT: denies: throat pain Cardiovascular: denies: chest pain Gastrointestinal: denies: abdominal pain, nausea, vomiting Genitourinary: denies: dysuria Musculoskeletal: denies: back pain Neurological: headache Physical Exam - Physical Exam Vital Signs: Vital Signs 12/24/17 12/25/17 12/25/17 21:30 05:41 05:52 Temperature 98.5 F 98.1 F Pulse Rate 98 H 86 83 Respiratory 16 18 20 Rate Blood Pressure 127/84 120/88 O2 Sat by Pulse 95 98 Oximetry 12/25/17 12/25/17 12/25/17 06:00 06:16 06:30 Temperature Pulse Rate 84 85 105 H Respiratory 11 L 12 12 Rate Blood Pressure 124/88 124/88 124/88 O2 Sat by Pulse 98 97 97 Oximetry 12/25/17 06:42 Temperature 98.2 F Pulse Rate Respiratory Rate Blood Pressure O2 Sat by Pulse Oximetry Physical Exam: GENERAL: The patient is well-developed well-nourished female lying on stretcher not appearing to be in acute distress. [] HEENT: Normocephalic. Atraumatic. Extraocular motions are intact. Patient has moist mucous membranes. NECK: Supple. No meningitic signs are noted. Trachea midline CHEST/LUNGS: Clear to auscultation. There is no respiratory distress noted. HEART/CARDIOVASCULAR: Regular. There is no tachycardia. There is no gallop rub or murmur. ABDOMEN: Abdomen is soft, nontender. Patient has normal bowel sounds. There is no abdominal distention. SKIN: There is no rash. There is no edema. There is no diaphoresis. NEURO: The patient is awake, alert, and oriented. The patient is cooperative. The patient has no focal neurologic deficits. The patient has normal speech. Cranial nerves II through XII grossly intact, no drift MUSCULOSKELETAL: There is no evidence of acute injury. ED Course Vital Signs 12/24/17 12/25/17 12/25/17 21:30 05:41 05:52 Temperature 98.5 F 98.1 F Pulse Rate 98 H 86 83 Respiratory 16 18 20 Rate Blood Pressure 127/84 120/88 O2 Sat by Pulse 95 98 Oximetry 12/25/17 12/25/17 12/25/17 06:00 06:16 06:30 Temperature Pulse Rate 84 85 105 H Respiratory 11 L 12 12 Rate Blood Pressure 124/88 124/88 124/88 O2 Sat by Pulse 98 97 97 Oximetry 12/25/17 06:42 Temperature 98.2 F Pulse Rate Respiratory Rate Blood Pressure O2 Sat by Pulse Oximetry - Reevaluation(s) Reevaluation #1: 01/30/18 08:55 Repeat Accu-Chek 297 ED Medical Decision Making - Lab Data Result diagrams: 12/24/17 21:58 12/24/17 21:58 Laboratory Tests 12/24/17 12/24/17 12/24/17 21:58 21:58 23:13 WBC 5.7 RBC 5.11 H Hgb 14.9 H Hct 44.5 H MCV 87 MCH 29 MCHC 34 RDW 13.9 Plt Count 166 Lymph % (Auto) 43.4 H Corson % (Auto) 7.5 H Eos % (Auto) 2.6 Baso % (Auto) 0.9 Lymph # 2.5 Corson # 0.4 Eos # 0.1 Baso # 0.0 Seg Neutrophils % 45.6 Seg Neutrophils # 2.6 VBG pH 7.328 Sodium 136 L Potassium 4.3 Chloride 96.0 L Carbon Dioxide 26 Anion Gap 18 BUN 11 Creatinine 0.9 Estimated GFR > 60 BUN/Creatinine Ratio 12 Glucose 508 H* Calcium 9.4 - Radiology Data Radiology results: report reviewed (CT head), image reviewed (CT head) CT HEAD WITHOUT CONTRAST: HISTORY: Headache. TECHNIQUE: Sequential 2.5mm CT images. COMPARISON: 05/05/17. FINDINGS: Cerebral Parenchyma: Within normal limits. Cerebellum: Within normal limits. Brainstem: Within normal limits. Ventricles: Normal. Sella: Normal. Extra-axial spaces: Normal. Basal Cisterns: Normal. Intracranial Hemorrhage: None. Midline Shift: None. Calvarium: Normal. Sinuses: Normal. Mastoid Air Cells: Normal. Visualized Orbits: Normal. IMPRESSION: Cranial CT scan within normal limits. No change since 05/05/17. Transcribed By: TTR Dictated By: PHILLY KNOX JR, MD Electronically Authenticated By: PHILLY KNOX JR, MD Signed Date/Time: 12/25/17739 DD/ 9 TD/TT: 12/25/17739 - Differential Diagnosis intracranial mass, migraine, ICH, headache Critical care attestation.: If time is entered above; I have spent that time in minutes in the direct care of this critically ill patient, excluding procedure time. ED Disposition Clinical Impression: Headache, Hyperglycemia Disposition: TO HOME OR SELFCARE Is pt being admited?: No Does the pt Need Aspirin: No Condition: Stable Instructions: Acute Headache (ED) Additional Instructions: Return to the emergency department immediately should you develop worsening symptoms, fever, inability to tolerate food or liquid or any other concerns. Prescriptions: Butalb/Acetamin/Caff 50-325-40 [Fioricet] 2 tab PO Q8HR PRN #20 tablet PRN Reason: Headache Referrals: GARRISON ORTIZ MD [Primary Care Provider] - 3-5 Days TERA MART MD [Staff Physician] - 3-5 Days (Dr. Mart is a neurologist. Please follow-up with him for further evaluation) Time of Disposition: 08:55
--- NOTE | 2017-12-25 07:46 | Cat Scan Report ---
CT HEAD WITHOUT CONTRAST: HISTORY: Headache. TECHNIQUE: Sequential 2.5mm CT images. COMPARISON: 05/05/17. FINDINGS: Cerebral Parenchyma: Within normal limits. Cerebellum: Within normal limits. Brainstem: Within normal limits. Ventricles: Normal. Sella: Normal. Extra-axial spaces: Normal. Basal Cisterns: Normal. Intracranial Hemorrhage: None. Midline Shift: None. Calvarium: Normal. Sinuses: Normal. Mastoid Air Cells: Normal. Visualized Orbits: Normal. IMPRESSION: Cranial CT scan within normal limits. No change since 05/05/17.
[2017-12-25 08:48] VITALS: BP 109/79
== END 2017-12-25 09:09 | disposition home or self-care (01) ==
LOC: ED 19:25
DX: R51 Headache (principal); E11.65 Type 2 diabetes mellitus with hyperglycemia; I10 Essential (primary) hypertension; E78.5 Hyperlipidemia, unspecified; Z90.49 Acquired absence of other specified parts of digestive tract; Z90.721 Acquired absence of ovaries, unilateral
CPT/HCPCS: 36415; 70450; 80048; 82805; 82962; 85025; 96374; J1815

== ENCOUNTER 2018-01-25 07:48 | Emergency (ER) | payer SELFPAY ==
[2018-01-25 08:04] VITALS: BP 129/84
[2018-01-25] MEDS ORDERED: TORADOL IM ONE (08:25)
[2018-01-25] MEDS ORDERED: ZOFRAN ODT PO ONE (08:25)
--- NOTE | 2018-01-25 09:24 | Cat Scan Report ---
CT HEAD WITHOUT CONTRAST: HISTORY: Migraine headache. TECHNIQUE: Sequential 2.5mm CT images. COMPARISON: 12/25/17. FINDINGS: Cerebral Parenchyma: Within normal limits. Cerebellum: Within normal limits. Brainstem: Within normal limits. Ventricles: Normal. Sella: Normal. Extra-axial spaces: Normal. Basal Cisterns: Normal. Intracranial Hemorrhage: None. Midline Shift: None. Calvarium: Normal. Sinuses: Normal. Mastoid Air Cells: Normal. Visualized Orbits: Normal. IMPRESSION: Cranial CT scan within normal limits.
--- NOTE | 2018-01-25 09:28 | Emergency Department Report ---
ED Headache HPI - General Chief Complaint: Headache Stated Complaint: HEADACHE Time Seen by Provider: 01/25/18 08:15 - History of Present Illness Initial Comments: This is a 52 y.o. female that presents with a headache since 0400 this morning. She have a history of migraines but didn't take anything to help relieve symptoms. Pain is on frontal bilateral area of head. The pain is 9/10 on pain scale. There is a throbbing sensation that is non-radiating. She is feeling pain around right eye. The pain is worse with light. Denies nausea, vomiting, aura, visual changes, recent head trauma, and palpitations. Timing/Duration: 4-6 hours Quality: constant, pressure, throbbing Head Injury Location: frontal Recent Head Trauma: no recent headache/trauma, frequent headaches Modifying Factors: improves with: exposure to light Associated Symptoms: facial pain (around right eye). denies: confusion, fatigue , fever/chills, flushing, loss of consciousness, nausea/vomiting, nasal congestion, nasal drainage, numbness in legs/feet, rash, seizures, sinus infection, stiff neck, vision changes, weakness Allergies/Adverse Reactions: Allergies No Known Allergies Allergy (Verified 01/25/18 08:01) Home Medications: Ambulatory Orders Lisinopril [Zestril] 20 mg PO QDAY #30 tablet 10/15/17 Lovastatin [Altoprev] 20 mg PO QPM #30 tab.er.24h 10/15/17 Metformin HCl [Glucophage] 1,000 mg PO BID #60 tablet 10/15/17 Metformin HCl 1,000 mg PO BID #60 tablet 11/13/17 Nitrofurantoin Monohyd/M-Cryst [Macrobid 100 mg Capsule] 100 mg PO BID #10 capsule 11/13/17 Butalb/Acetamin/Caff 50-325-40 [Fioricet] 2 tab PO Q8HR PRN #20 tablet 12/25/17 Ibuprofen 800 mg PO Q6H PRN #20 tablet 01/25/18 ED Review of Systems ROS: Stated complaint: HEADACHE Other details as noted in HPI Constitutional: denies: chills, fever Eyes: eye pain (pressure around right eye). denies: eye discharge, vision change ENT: denies: ear pain, throat pain Respiratory: denies: cough, shortness of breath, wheezing Cardiovascular: denies: chest pain, palpitations Gastrointestinal: denies: abdominal pain, nausea, diarrhea Skin: denies: rash, lesions Neurological: headache. denies: weakness, paresthesias Psychiatric: denies: anxiety, depression ED Past Medical Hx - Past Medical History Previous Medical History?: Yes Hx Hypertension: Yes Hx Diabetes: Yes Additional medical history: hyperlipidemia. NON COMP - Surgical History Hx Cholecystectomy: Yes Additional Surgical History: gallbladder, L ovary removal - Social History Smoking Status: Current Some Day Smoker - Medications Home Medications: Home Medications Medication Instructions Recorded Confirmed Last Taken Type Lisinopril [Zestril] 20 mg PO QDAY #30 tablet 10/15/17 11/13/17 Unknown Rx Lovastatin [Altoprev] 20 mg PO QPM #30 tab.er.24h 10/15/17 11/13/17 Unknown Rx Metformin HCl [Glucophage] 1,000 mg PO BID #60 tablet 10/15/17 11/13/17 Unknown Rx Metformin HCl 1,000 mg PO BID #60 tablet 11/13/17 11/13/17 Unknown Rx Nitrofurantoin Monohyd/M-Cryst 100 mg PO BID #10 capsule 11/13/17 11/13/17 Unknown Rx [Macrobid 100 mg Capsule] Butalb/Acetamin/Caff 50-325-40 2 tab PO Q8HR PRN #20 tablet 12/25/17 Unknown Rx [Fioricet] Ibuprofen 800 mg PO Q6H PRN #20 tablet 01/25/18 Unknown Rx ED Physical Exam - General Limitations: No Limitations General appearance: alert, in no apparent distress - Head Head exam: Present: atraumatic, normocephalic - Eye Eye exam: Present: normal appearance - ENT ENT exam: Present: mucous membranes moist - Neck Neck exam: Present: normal inspection - Respiratory Respiratory exam: Present: normal lung sounds bilaterally. Absent: respiratory distress - Cardiovascular Cardiovascular Exam: Present: regular rate, normal rhythm, normal heart sounds. Absent: systolic murmur, diastolic murmur, rubs, gallop - GI/Abdominal GI/Abdominal exam: Present: soft, normal bowel sounds - Neurological Exam Neurological exam: Present: alert, oriented X3, normal gait - Skin Skin exam: Present: warm, dry, intact, normal color. Absent: rash ED Course Vital Signs 03/02/18 08:01 Temperature 98.3 F Pulse Rate 87 Respiratory 20 Rate Blood Pressure 129/84 O2 Sat by Pulse 96 Oximetry ED Medical Decision Making - Radiology Data Radiology results: report reviewed IMPRESSION: Cranial CT scan within normal limits. - Medical Decision Making This is a 52 y.o. female that presents with headache since 0400 this morning. History of migraines. Patient is stable and was examined by me. CT of head obtained and dictated by radiologist. Patient notified of results of normal scan. Signs of distress noted, pain worse with light. Given toradol 30 mg IM, zofran 4 mg ODT once in ER. Follow up with PCP. Continue current medication for migraines. No further questions noted by the patient. Discharged home in stable condition. Follow up with PCP in 24-72 hours. Critical care attestation.: If time is entered above; I have spent that time in minutes in the direct care of this critically ill patient, excluding procedure time. ED Disposition Clinical Impression: Migraine Qualifiers: Migraine type: without aura Status migrainosus presence: with status migrainosus Intractability: not intractable Qualified Code(s): G43.001 - Migraine without aura, not intractable, with status migrainosus Disposition: TO HOME OR SELFCARE Is pt being admited?: No Does the pt Need Aspirin: No Condition: Stable Instructions: Ibuprofen (By mouth), Migraine Headache (ED) Additional Instructions: Take medication at start of headache. Minimize caffeine intake. Eat at scheduled times or 3 meals a day with snacks. Follow up with primary care provider in 24-72 hours. Prescriptions: Ibuprofen 800 mg PO Q6H PRN #20 tablet PRN Reason: For Pain/Fever/Headache Referrals: [facility] [Outside] - 3-[address] [facility] [Outside] - 3-5 Days [facility] [Outside] - 3-5 Days Time of Disposition: 10:33 Print Language: ARGENTINE
== END 2018-01-25 10:39 | disposition home or self-care (01) ==
LOC: ED 07:48
DX: G43.001 Migraine without aura, not intractable, with status migrainosus (principal); I10 Essential (primary) hypertension; E11.9 Type 2 diabetes mellitus without complications; F17.200 Nicotine dependence, unspecified, uncomplicated; E78.5 Hyperlipidemia, unspecified; Z90.49 Acquired absence of other specified parts of digestive tract; Z90.721 Acquired absence of ovaries, unilateral
CPT/HCPCS: 70450; 96372; 99284; J1885; Q0162

== ENCOUNTER 2018-04-01 10:05 | Emergency (ER) | payer SELFPAY ==
[2018-04-01 10:14] VITALS: BP 116/83
--- NOTE | 2018-04-01 12:16 | Emergency Department Report ---
Blank Doc - Documentation Documentation: Patient is a 52-year-old female presenting with headache. Patient has a history of migraine headaches. Patient states had has been present his present for the last 12 hours. Patient states is 8 out of 10 in severity and associated with photophobia and nausea. There is no neck stiffness. Patient will be moved to a treatment room for IV fluids Toradol and Zofran.
[2018-04-01] MEDS ORDERED: BENADRYL IV ONE (12:18)
[2018-04-01] MEDS ORDERED: REGLAN IV ONE (12:18)
[2018-04-01] MEDS ORDERED: NACL 0.9% 1000 ML 1,000 ML IV ONE (12:18)
[2018-04-01] MEDS ORDERED: TORADOL IV ONE (12:20)
--- NOTE | 2018-04-01 13:30 | Emergency Department Report ---
ED Headache HPI - General Chief Complaint: Headache Stated Complaint: HEADACHE Time Seen by Provider: 04/01/18 12:00 - History of Present Illness Initial Comments: 52-year-old female past medical history hypertension hyperlipidemia diabetes presents with complaint of headache since yesterday. Intermittent. Patient denies fever or chills. Denies upper or lower extremity paresthesias. Patient is awake alert and oriented 3. Denies any nuchal rigidity neck pain recent head trauma fever chills dysuria abdominal pain chest pain palpitations. Headache is currently 7 out of 10. Throbbing, anterior. States she has had worse headaches in the past. Denies alcohol or drug use. Timing/Duration: 24 hours Quality: moderate Head Injury Location: temporal Recent Head Trauma: chronic headaches, occasional headaches Allergies/Adverse Reactions: Allergies No Known Allergies Allergy (Verified 01/25/18 08:01) Home Medications: Ambulatory Orders Lisinopril [Zestril] 20 mg PO QDAY #30 tablet 10/15/17 Lovastatin [Altoprev] 20 mg PO QPM #30 tab.er.24h 10/15/17 Metformin HCl [Glucophage] 1,000 mg PO BID #60 tablet 10/15/17 Metformin HCl 1,000 mg PO BID #60 tablet 11/13/17 Nitrofurantoin Monohyd/M-Cryst [Macrobid 100 mg Capsule] 100 mg PO BID #10 capsule 11/13/17 Butalb/Acetamin/Caff 50-325-40 [Fioricet] 2 tab PO Q8HR PRN #20 tablet 12/25/17 Ibuprofen 800 mg PO Q6H PRN #20 tablet 01/25/18 Butalb/Acetamin/Caff 50-325-40 [Fioricet] 1 tab PO Q8HR PRN #10 tablet 04/01/18 ED Review of Systems ROS: Stated complaint: HEADACHE Other details as noted in HPI Constitutional: denies: chills, fever Eyes: denies: eye pain, eye discharge, vision change ENT: denies: ear pain, throat pain Respiratory: denies: cough, shortness of breath, wheezing Cardiovascular: denies: chest pain, palpitations Endocrine: no symptoms reported Gastrointestinal: denies: abdominal pain, nausea, diarrhea Genitourinary: denies: urgency, dysuria, discharge Musculoskeletal: denies: back pain, joint swelling, arthralgia Skin: denies: rash, lesions Neurological: denies: headache, weakness, paresthesias Psychiatric: denies: anxiety, depression Hematological/Lymphatic: denies: easy bleeding, easy bruising ED Past Medical Hx - Past Medical History Previous Medical History?: Yes Hx Hypertension: Yes Hx Diabetes: Yes Hx Headaches / Migraines: Yes Additional medical history: hyperlipidemia. NON COMP - Surgical History Past Surgical History?: Yes Hx Cholecystectomy: Yes Additional Surgical History: gallbladder, L ovary removal - Social History Smoking Status: Never Smoker Substance Use Type: None - Medications Home Medications: Home Medications Medication Instructions Recorded Confirmed Last Taken Type Lisinopril [Zestril] 20 mg PO QDAY #30 tablet 10/15/17 11/13/17 Unknown Rx Lovastatin [Altoprev] 20 mg PO QPM #30 tab.er.24h 10/15/17 11/13/17 Unknown Rx Metformin HCl [Glucophage] 1,000 mg PO BID #60 tablet 10/15/17 11/13/17 Unknown Rx Metformin HCl 1,000 mg PO BID #60 tablet 11/13/17 11/13/17 Unknown Rx Nitrofurantoin Monohyd/M-Cryst 100 mg PO BID #10 capsule 11/13/17 11/13/17 Unknown Rx [Macrobid 100 mg Capsule] Butalb/Acetamin/Caff 50-325-40 2 tab PO Q8HR PRN #20 tablet 12/25/17 Unknown Rx [Fioricet] Ibuprofen 800 mg PO Q6H PRN #20 tablet 01/25/18 Unknown Rx Butalb/Acetamin/Caff 50-325-40 1 tab PO Q8HR PRN #10 tablet 04/01/18 Unknown Rx [Fioricet] ED Physical Exam - General Limitations: No Limitations General appearance: alert, in no apparent distress - Head Head exam: Present: atraumatic, normocephalic - Eye Eye exam: Present: normal appearance, PERRL, EOMI Pupils: Present: normal accommodation - ENT ENT exam: Present: mucous membranes moist - Neck Neck exam: Present: normal inspection, full ROM - Respiratory Respiratory exam: Present: normal lung sounds bilaterally. Absent: respiratory distress - Cardiovascular Cardiovascular Exam: Present: regular rate, normal rhythm. Absent: systolic murmur, diastolic murmur, rubs, gallop - GI/Abdominal GI/Abdominal exam: Present: soft, normal bowel sounds - Extremities Exam Extremities exam: Present: normal inspection - Back Exam Back exam: Present: normal inspection - Neurological Exam Neurological exam: Present: alert, oriented X3, CN II-XII intact, normal gait - Expanded Neurological Exam Expanded Patient oriented to: Present: person, place, time Cranial nerves: EOM's Intact: Normal, Facial Sensation: Normal Cerebellar function: Finger to Nose: Normal, Heel to Evans: Normal, Romberg: Normal Sensory exam: Upper Extremity Light Touch: Normal, Lower Extremity Light Touch: Normal Motor strength exam: RUE: 5, LUE: 5, RLE: 5, LLE: 5 Best Eye Response (Travis): (4) open spontaneously Best Motor Response (Travis): (6) obeys commands Best Verbal Response (Markle): (5) oriented Markle Total: 15 - Psychiatric Psychiatric exam: Present: normal affect, normal mood - Skin Skin exam: Present: warm, dry, intact, normal color. Absent: rash ED Course Vital Signs 04/01/18 10:09 Temperature 98.3 F Pulse Rate 90 Respiratory 20 Rate Blood Pressure 116/83 O2 Sat by Pulse 97 Oximetry ED Medical Decision Making - Medical Decision Making A/P: Migraine headache 1-short coarse Fioricet when necessary 2-follow-up with primary care and neurology 3-patient has no meningismus. Cranial nerves 2, 3, 4, 5, 6, 7, 8,10, 11, 12 intact on clinical exam, patient is fully lucid awake alert and oriented 3 conversant. Denies any upper or lower extremity paresthesias and has 5/5 strength in bilateral upper and lower extremities on clinical exam. 4- pt independently ambulatory without assistance upon discharge. Patient felt significant relief of headache with one dose of Reglan 5- vital signs stable for discharge. CT head unremarkable. Critical care attestation.: If time is entered above; I have spent that time in minutes in the direct care of this critically ill patient, excluding procedure time. ED Disposition Clinical Impression: Migraine headache Qualifiers: Migraine type: unspecified Status migrainosus presence: without status migrainosus Intractability: not intractable Qualified Code(s): G43.909 - Migraine, unspecified, not intractable, without status migrainosus Disposition: TO HOME OR SELFCARE Is pt being admited?: No Does the pt Need Aspirin: No Condition: Stable Instructions: Migraine Headache (ED), Acute Headache (ED) Prescriptions: Butalb/Acetamin/Caff 50-325-40 [Fioricet] 1 tab PO Q8HR PRN #10 tablet PRN Reason: Headache Referrals: [facility] [Provider Group] - 3-[address] [facility] [Outside] - 3-5 Days GALE FERNANDEZ MD [Staff Physician] - 3-5 Days Forms: Work/School Release Form(ED) Time of Disposition: 14:51 Print Language: CZECH
--- NOTE | 2018-04-01 14:17 | Cat Scan Report ---
CT HEAD WITHOUT CONTRAST: HISTORY: Headache. TECHNIQUE: Sequential 2.5mm CT images. COMPARISON: 01/25/18. FINDINGS: Cerebral Parenchyma: Within normal limits. Cerebellum: Within normal limits. Brainstem: Within normal limits. Ventricles: Normal. Sella: Normal. Extra-axial spaces: Normal. Basal Cisterns: Normal. Intracranial Hemorrhage: None. Midline Shift: None. Calvarium: Normal. Sinuses: Normal. Mastoid Air Cells: Normal. Visualized Orbits: Normal. IMPRESSION: Cranial CT scan within normal limits.
== END 2018-04-01 15:39 | disposition home or self-care (01) ==
LOC: ED 10:05
DX: G43.909 Migraine, unspecified, not intractable, without status migrainosus (principal); I10 Essential (primary) hypertension; E11.9 Type 2 diabetes mellitus without complications; E78.5 Hyperlipidemia, unspecified; Z90.49 Acquired absence of other specified parts of digestive tract; Z79.84 Long term (current) use of oral hypoglycemic drugs
CPT/HCPCS: 70450; 82962; 96374; 96375; 99284; J1200; J1885; J2765; J7030

== ENCOUNTER 2018-05-13 04:21 | Emergency (ER) | payer SELFPAY ==
[2018-05-13] MEDS ORDERED: ASPIRIN PO ONE (04:31)
[2018-05-13 04:34] VITALS: BP 120/91
[2018-05-13 05:19] LABS: Basophils % (Auto) 0.7 % (0.0-1.8); Eosinophils # (Auto) 0.2 K/mm3 (0.0-0.4); Eosinophils % (Auto) 3.3 % (0.0-4.3); Hematocrit 41.4 % (30.3-42.9); Hemoglobin 13.8 gm/dl (10.1-14.3); Lymphocytes # (Auto) 2.1 K/mm3 (1.2-5.4); Lymphocytes % (Auto) 39.1 % (13.4-35.0); Mean Corpuscular HGB Conc 33 % (30-34); Mean Corpuscular Hemoglobin 29 pg (28-32); Mean Corpuscular Volume 87 fl (79-97); Monocytes # (Auto) 0.4 K/mm3 (0.0-0.8); Monocytes % (Auto) 7.9 % (0.0-7.3); Platelet Count 152 K/mm3 (140-440); Red Blood Count 4.74 M/mm3 (3.65-5.03); Red Cell Distribution Width 14.4 % (13.2-15.2)
[2018-05-13 05:23] LABS: BUN/Creatinine Ratio 23; Blood Urea Nitrogen 16 mg/dL (7-17); Hemolysis Index 1
== END 2018-05-13 07:19 | disposition left against medical advice (07) ==
LOC: ED 04:21
DX: R07.9 Chest pain, unspecified (principal); Z53.21 Procedure and treatment not carried out due to patient leaving prior to being seen by health care provider
CPT/HCPCS: 36415; 80048; 84484; 85025; 93005; 93010

== ENCOUNTER 2018-05-30 13:20 | Emergency (ER) | payer SELFPAY ==
[2018-05-30 13:44] VITALS: BP 122/86
[2018-05-30 14:12] LABS: Basophils % (Auto) 0.8 % (0.0-1.8); Eosinophils # (Auto) 0.1 K/mm3 (0.0-0.4); Eosinophils % (Auto) 1.7 % (0.0-4.3); Hematocrit 44.5 % (30.3-42.9); Lymphocytes # (Auto) 2.2 K/mm3 (1.2-5.4); Lymphocytes % (Auto) 38.5 % (13.4-35.0); Mean Corpuscular HGB Conc 34 % (30-34); Mean Corpuscular Hemoglobin 29 pg (28-32); Mean Corpuscular Volume 87 fl (79-97); Monocytes # (Auto) 0.4 K/mm3 (0.0-0.8); Monocytes % (Auto) 6.6 % (0.0-7.3); Platelet Count 174 K/mm3 (140-440); Red Blood Count 5.14 M/mm3 (3.65-5.03); Red Cell Distribution Width 13.9 % (13.2-15.2)
[2018-05-30 14:37] LABS: Alanine Aminotransferase 13 units/L (7-56); Albumin 4.6 g/dL (3.9-5); BUN/Creatinine Ratio 13; Blood Urea Nitrogen 9 mg/dL (7-17); Calcium 9.7 mg/dL (8.4-10.2); Hemolysis Index 2
[2018-05-30 14:44] LABS: Bacteria,Urine 1+ /HPF (Negative); Bilirubin,Urine NEG (Negative); Blood,Urine NEG (Negative); Color,Urine Yellow (Yellow); Mucus,Urine FEW /HPF; Urobilinogen,Urine < 2.0 mg/dL (<2.0)
[2018-05-30 14:45] LABS: Lipase 440 units/L (13-60)
--- NOTE | 2018-05-30 16:23 | Emergency Department Report ---
ED Abdominal Pain HPI - General Chief Complaint: Abdominal Pain Stated Complaint: ABD PAIN Time Seen by Provider: 05/30/18 16:03 Source: patient Mode of arrival: Ambulatory Limitations: No Limitations - History of Present Illness Initial Comments: Patient is a 52-year-old female who has had some left upper quadrant pain for the last 3 days. Patient states is because of very mild nausea but no vomiting. Patient denies any fevers chills diarrhea. Patient states pain is 7 out of 10 and does not radiate. Patient has a history of diabetes as well as cholecystectomy. The patient because of her diabetes is coming in assuming that she may have pancreatitis. MD Complaint: abdominal pain - Related Data Previous Rx's Medication Instructions Recorded Last Taken Type Lisinopril [Zestril] 20 mg PO QDAY #30 tablet 10/15/17 Unknown Rx Lovastatin [Altoprev] 20 mg PO QPM #30 tab.er.24h 10/15/17 Unknown Rx Metformin HCl [Glucophage] 1,000 mg PO BID #60 tablet 10/15/17 Unknown Rx Metformin HCl 1,000 mg PO BID #60 tablet 11/13/17 Unknown Rx Nitrofurantoin Monohyd/M-Cryst 100 mg PO BID #10 capsule 11/13/17 Unknown Rx [Macrobid 100 mg Capsule] Butalb/Acetamin/Caff 50-325-40 2 tab PO Q8HR PRN #20 tablet 12/25/17 Unknown Rx [Fioricet] Ibuprofen 800 mg PO Q6H PRN #20 tablet 01/25/18 Unknown Rx Butalb/Acetamin/Caff 50-325-40 1 tab PO Q8HR PRN #10 tablet 04/01/18 Unknown Rx [Fioricet] Famotidine [Pepcid] 40 mg PO QHS #20 tablet 05/30/18 Unknown Rx HYDROcodone/APAP 5-325 [[place] 1 each PO Q6HR PRN #15 tablet 05/30/18 Unknown Rx 5/325] Ibuprofen [Motrin] 600 mg PO Q8H PRN #20 tablet 05/30/18 Unknown Rx Ondansetron [Zofran Odt] 4 mg PO Q8HR PRN #10 tab.rapdis 05/30/18 Unknown Rx Allergies Allergy/AdvReac Type Severity Reaction Status Date / Time No Known Allergies Allergy Verified 01/25/18 08:01 ED Review of Systems ROS: Stated complaint: ABD PAIN Other details as noted in HPI Comment: All other systems reviewed and negative ED Past Medical Hx - Past Medical History Hx Hypertension: Yes Hx Diabetes: Yes Hx Headaches / Migraines: Yes Additional medical history: hyperlipidemia. NON COMP - Surgical History Hx Cholecystectomy: Yes Additional Surgical History: gallbladder, L ovary removal - Social History Smoking Status: Current Some Day Smoker Substance Use Type: Alcohol - Medications Home Medications: Home Medications Medication Instructions Recorded Confirmed Last Taken Type Lisinopril [Zestril] 20 mg PO QDAY #30 tablet 10/15/17 11/13/17 Unknown Rx Lovastatin [Altoprev] 20 mg PO QPM #30 tab.er.24h 10/15/17 11/13/17 Unknown Rx Metformin HCl [Glucophage] 1,000 mg PO BID #60 tablet 10/15/17 11/13/17 Unknown Rx Metformin HCl 1,000 mg PO BID #60 tablet 11/13/17 11/13/17 Unknown Rx Nitrofurantoin Monohyd/M-Cryst 100 mg PO BID #10 capsule 11/13/17 11/13/17 Unknown Rx [Macrobid 100 mg Capsule] Butalb/Acetamin/Caff 50-325-40 2 tab PO Q8HR PRN #20 tablet 12/25/17 Unknown Rx [Fioricet] Ibuprofen 800 mg PO Q6H PRN #20 tablet 01/25/18 Unknown Rx Butalb/Acetamin/Caff 50-325-40 1 tab PO Q8HR PRN #10 tablet 04/01/18 Unknown Rx [Fioricet] Famotidine [Pepcid] 40 mg PO QHS #20 tablet 05/30/18 Unknown Rx HYDROcodone/APAP 5-325 [[place] 1 each PO Q6HR PRN #15 tablet 05/30/18 Unknown Rx 5/325] Ibuprofen [Motrin] 600 mg PO Q8H PRN #20 tablet 05/30/18 Unknown Rx Ondansetron [Zofran Odt] 4 mg PO Q8HR PRN #10 tab.rapdis 05/30/18 Unknown Rx ED Physical Exam - General Limitations: No Limitations General appearance: alert, in no apparent distress - Head Head exam: Present: atraumatic, normocephalic - Eye Eye exam: Present: normal appearance - ENT ENT exam: Present: mucous membranes moist - Neck Neck exam: Present: normal inspection - Respiratory Respiratory exam: Present: normal lung sounds bilaterally. Absent: respiratory distress, wheezes, rales, rhonchi - Cardiovascular Cardiovascular Exam: Present: regular rate, normal rhythm. Absent: systolic murmur, diastolic murmur, rubs, gallop - GI/Abdominal GI/Abdominal exam: Present: soft, tenderness (mild LUQ tenderness), normal bowel sounds. Absent: distended, guarding, rebound - Extremities Exam Extremities exam: Present: normal inspection - Back Exam Back exam: Present: normal inspection - Neurological Exam Neurological exam: Present: alert, oriented X3 - Psychiatric Psychiatric exam: Present: normal affect, normal mood - Skin Skin exam: Present: warm, dry, intact, normal color. Absent: rash ED Course Vital Signs 05/30/18 13:41 Temperature 98.8 F Pulse Rate 89 Respiratory 16 Rate Blood Pressure 122/86 O2 Sat by Pulse 98 Oximetry ED Medical Decision Making - Lab Data Result diagrams: 05/30/18 13:57 05/30/18 13:57 Lab Results 05/30/18 05/30/18 05/30/18 Range/Units 13:57 13:57 13:57 WBC 5.7 (4.5-11.0) K/mm3 RBC 5.14 H (3.65-5.03) M/mm3 Hgb 15.0 H (10.1-14.3) gm/dl Hct 44.5 H (30.3-42.9) % MCV 87 (79-97) fl MCH 29 (28-32) pg MCHC 34 (30-34) % RDW 13.9 (13.2-15.2) % Plt Count 174 (140-440) K/mm3 Lymph % (Auto) 38.5 H (13.4-35.0) % [place] % (Auto) 6.6 (0.0-7.3) % Eos % (Auto) 1.7 (0.0-4.3) % Baso % (Auto) 0.8 (0.0-1.8) % Lymph # 2.2 (1.2-5.4) K/mm3 [place] # 0.4 (0.0-0.8) K/mm3 Eos # 0.1 (0.0-0.4) K/mm3 Baso # 0.0 (0.0-0.1) K/mm3 Seg Neutrophils % 52.4 (40.0-70.0) % Seg Neutrophils # 3.0 (1.8-7.7) K/mm3 Sodium 139 (137-145) mmol/L Potassium 4.7 (3.6-5.0) mmol/L Chloride 98.3 (98-107) mmol/L Carbon Dioxide 27 (22-30) mmol/L Anion Gap 18 mmol/L BUN 9 (7-17) mg/dL Creatinine 0.7 (0.7-1.2) mg/dL Estimated GFR > 60 ml/min BUN/Creatinine Ratio 13 % Glucose 310 H (65-100) mg/dL Calcium 9.7 (8.4-10.2) mg/dL Total Bilirubin 0.70 (0.1-1.2) mg/dL AST 17 (5-40) units/L ALT 13 (7-56) units/L Alkaline Phosphatase 110 (35-129) units/L Total Protein 7.7 (6.3-8.2) g/dL Albumin 4.6 (3.9-5) g/dL Albumin/Globulin Ratio 1.5 % Lipase 440 H (13-60) units/L HCG, Qual Negative (Negative) Urine Color (Yellow) Urine Turbidity (Clear) Urine pH (5.0-7.0) Ur Specific [place] (1.003-1.030) Urine Protein (Negative) mg/dL Urine Glucose (UA) (Negative) mg/dL Urine Ketones (Negative) mg/dL Urine Blood (Negative) Urine Nitrite (Negative) Urine Bilirubin (Negative) Urine Urobilinogen (<2.0) mg/dL Ur Leukocyte Esterase (Negative) Urine WBC (Auto) (0.0-6.0) /HPF Urine RBC (Auto) (0.0-6.0) /HPF U Epithel Cells (Auto) (0-13.0) /HPF Urine Bacteria (Auto) (Negative) /HPF Urine Mucus /HPF 05/30/18 Range/Units 14:13 WBC (4.5-11.0) K/mm3 RBC (3.65-5.03) M/mm3 Hgb (10.1-14.3) gm/dl Hct (30.3-42.9) % MCV (79-97) fl MCH (28-32) pg MCHC (30-34) % RDW (13.2-15.2) % Plt Count (140-440) K/mm3 Lymph % (Auto) (13.4-35.0) % [place] % (Auto) (0.0-7.3) % Eos % (Auto) (0.0-4.3) % Baso % (Auto) (0.0-1.8) % Lymph # (1.2-5.4) K/mm3 [place] # (0.0-0.8) K/mm3 Eos # (0.0-0.4) K/mm3 Baso # (0.0-0.1) K/mm3 Seg Neutrophils % (40.0-70.0) % Seg Neutrophils # (1.8-7.7) K/mm3 Sodium (137-145) mmol/L Potassium (3.6-5.0) mmol/L Chloride (98-107) mmol/L Carbon Dioxide (22-30) mmol/L Anion Gap mmol/L BUN (7-17) mg/dL Creatinine (0.7-1.2) mg/dL Estimated GFR ml/min BUN/Creatinine Ratio % Glucose (65-100) mg/dL Calcium (8.4-10.2) mg/dL Total Bilirubin (0.1-1.2) mg/dL AST (5-40) units/L ALT (7-56) units/L Alkaline Phosphatase (35-129) units/L Total Protein (6.3-8.2) g/dL Albumin (3.9-5) g/dL Albumin/Globulin Ratio % Lipase (13-60) units/L HCG, Qual (Negative) Urine Color Yellow (Yellow) Urine Turbidity Clear (Clear) Urine pH 5.0 (5.0-7.0) Ur Specific [place] 1.025 (1.003-1.030) Urine Protein 30 mg/dl (Negative) mg/dL Urine Glucose (UA) >=500 (Negative) mg/dL Urine Ketones Tr (Negative) mg/dL Urine Blood Neg (Negative) Urine Nitrite Neg (Negative) Urine Bilirubin Neg (Negative) Urine Urobilinogen < 2.0 (<2.0) mg/dL Ur Leukocyte Esterase Sm (Negative) Urine WBC (Auto) 3.0 (0.0-6.0) /HPF Urine RBC (Auto) 2.0 (0.0-6.0) /HPF U Epithel Cells (Auto) 4.0 (0-13.0) /HPF Urine Bacteria (Auto) 1+ (Negative) /HPF Urine Mucus Few /HPF - Medical Decision Making Patient is a 52-year-old female who is presenting with some left upper quadrant discomfort. Patient looks very stable and does not appear to be a great deal of pain subjectively. Patient's lipase is slightly elevated. Patient also has some mild elevation of her glucose however she is not in DKA. Patient be started on pain meds. Patient told to keep a relatively liquid diet for the next several days and patient was also given a GI for follow-up. Critical care attestation.: If time is entered above; I have spent that time in minutes in the direct care of this critically ill patient, excluding procedure time. ED Disposition Clinical Impression: Pancreatitis Qualifiers: Chronicity: acute Pancreatitis type: idiopathic Acute pancreatitis complication : unspecified Qualified Code(s): K85.00 - Idiopathic acute pancreatitis without necrosis or infection Disposition: DC-01 TO HOME OR SELFCARE Is pt being admited?: No Does the pt Need Aspirin: No Condition: Stable Instructions: Pancreatitis (ED), Clear Liquid Diet (ED) Referrals: JOE MENDES MD [Staff Physician] - 3-5 Days
== END 2018-05-30 16:35 | disposition home or self-care (01) ==
LOC: ED 13:20
DX: K85.00 Idiopathic acute pancreatitis without necrosis or infection (principal); I10 Essential (primary) hypertension; E11.9 Type 2 diabetes mellitus without complications; G43.909 Migraine, unspecified, not intractable, without status migrainosus; F17.200 Nicotine dependence, unspecified, uncomplicated; Z90.49 Acquired absence of other specified parts of digestive tract; Z79.84 Long term (current) use of oral hypoglycemic drugs
CPT/HCPCS: 36415; 80053; 81001; 83690; 84703; 85025; 99283

== ENCOUNTER 2018-07-18 02:10 | Emergency (ER) | payer SELFPAY ==
[2018-07-18 02:17] VITALS: BP 133/92
[2018-07-18] MEDS ORDERED: TYLENOL PO ONE (02:35)
[2018-07-18] MEDS ORDERED: TYLENOL ONE (02:39)
--- NOTE | 2018-07-18 06:24 | Emergency Department Report ---
ED Headache HPI - General Chief Complaint: Headache Stated Complaint: HEADACHE Time Seen by Provider: 07/18/18 06:24 - History of Present Illness Initial Comments: 53-year-old female comes to the emergency room for headache 1 day. Patient denies nausea vomiting denies any head injury. Patient denies any change of vision patient also denies taking anything for her headache. She reports a history of diabetes and hypertension but has run out of her metformin. Patient does not follow up with the primary care provider even though she has been referred several times in the past. Timing/Duration: 24 hours Quality: severe Head Injury Location: frontal Recent Head Trauma: frequent headaches Associated Symptoms: denies: fever/chills, loss of consciousness, nausea/ vomiting, nasal congestion Allergies/Adverse Reactions: Allergies No Known Allergies Allergy (Verified 01/25/18 08:01) Home Medications: Ambulatory Orders Lisinopril [Zestril] 20 mg PO QDAY #30 tablet 10/15/17 Lovastatin [Altoprev] 20 mg PO QPM #30 tab.er.24h 10/15/17 Metformin HCl [Glucophage] 1,000 mg PO BID #60 tablet 10/15/17 Nitrofurantoin Monohyd/M-Cryst [Macrobid 100 mg Capsule] 100 mg PO BID #10 capsule 11/13/17 Butalb/Acetamin/Caff 50-325-40 [Fioricet] 2 tab PO Q8HR PRN #20 tablet 12/25/17 Ibuprofen 800 mg PO Q6H PRN #20 tablet 01/25/18 Butalb/Acetamin/Caff 50-325-40 [Fioricet] 1 tab PO Q8HR PRN #10 tablet 04/01/18 Famotidine [Pepcid] 40 mg PO QHS #20 tablet 05/30/18 HYDROcodone/APAP 5-325 [[place] 5/325] 1 each PO Q6HR PRN #15 tablet 05/30/18 Ondansetron [Zofran Odt] 4 mg PO Q8HR PRN #10 tab.rapdis 05/30/18 Ibuprofen [Motrin 600 MG tab] 600 mg PO Q8H PRN #20 tablet 07/18/18 Metformin HCl 1,000 mg PO BID #60 tablet 07/18/18 ED Review of Systems ROS: Stated complaint: HEADACHE Other details as noted in HPI Comment: All other systems reviewed and negative Neurological: headache ED Past Medical Hx - Past Medical History Previous Medical History?: Yes Hx Hypertension: Yes Hx Diabetes: Yes Hx Headaches / Migraines: Yes Additional medical history: hyperlipidemia. NON COMP - Surgical History Past Surgical History?: Yes Hx Cholecystectomy: Yes Additional Surgical History: gallbladder, L ovary removal - Social History Smoking Status: Never Smoker Substance Use Type: Alcohol - Medications Home Medications: Home Medications Medication Instructions Recorded Confirmed Last Taken Type Lisinopril [Zestril] 20 mg PO QDAY #30 tablet 10/15/17 11/13/17 Unknown Rx Lovastatin [Altoprev] 20 mg PO QPM #30 tab.er.24h 10/15/17 11/13/17 Unknown Rx Metformin HCl [Glucophage] 1,000 mg PO BID #60 tablet 10/15/17 11/13/17 Unknown Rx Nitrofurantoin Monohyd/M-Cryst 100 mg PO BID #10 capsule 11/13/17 11/13/17 Unknown Rx [Macrobid 100 mg Capsule] Butalb/Acetamin/Caff 50-325-40 2 tab PO Q8HR PRN #20 tablet 12/25/17 Unknown Rx [Fioricet] Ibuprofen 800 mg PO Q6H PRN #20 tablet 01/25/18 Unknown Rx Butalb/Acetamin/Caff 50-325-40 1 tab PO Q8HR PRN #10 tablet 04/01/18 Unknown Rx [Fioricet] Famotidine [Pepcid] 40 mg PO QHS #20 tablet 05/30/18 Unknown Rx HYDROcodone/APAP 5-325 [[place] 1 each PO Q6HR PRN #15 tablet 05/30/18 Unknown Rx 5/325] Ondansetron [Zofran Odt] 4 mg PO Q8HR PRN #10 tab.rapdis 05/30/18 Unknown Rx Ibuprofen [Motrin 600 MG tab] 600 mg PO Q8H PRN #20 tablet 07/18/18 Unknown Rx Metformin HCl 1,000 mg PO BID #60 tablet 07/18/18 Unknown Rx ED Physical Exam - General Limitations: No Limitations General appearance: alert, in no apparent distress - Head Head exam: Present: atraumatic, normocephalic - Eye Eye exam: Present: EOMI - ENT ENT exam: Present: mucous membranes moist - Expanded Neurological Exam Expanded Cranial nerves: EOM's Intact: Normal, Gag Reflex: Normal, Tongue Deviation: Normal, Nystagmus: Normal, Facial Sensation: Normal, Facial Palsy with Forehead Movement: Normal, Facial Palsy without Forehead Movement: Normal Cerebellar function: Finger to Nose: Normal, Heel to Evans: Normal Upper motor neuron: Maged Neglect: Normal, Pronator Drift: Normal, Babinski Sign : Normal, Sensory Extinction: Normal Sensory exam: Upper Extremity Light Touch: Normal, Upper Extremity Pin Prick: Normal, Upper Extremity Temperature: Normal, UE 2 Point Discrimination: Normal, Lower Extremity Light Touch: Normal, Lower Extremity Pin Prick: Normal, Lower Extremity Temperature: Normal, LE 2 Point Discrimination: Normal Motor strength exam: RUE: 4, LUE: 4, RLE: 4, LLE: 4 Best Eye Response ([place]): (4) open spontaneously Best Motor Response ([place]): (6) obeys commands Best Verbal Response ([place]): (5) oriented [place] Total: 15 - Psychiatric Psychiatric exam: Present: normal affect, normal mood - Skin Skin exam: Present: warm, dry, intact, normal color. Absent: rash ED Course Vital Signs 07/18/18 07/18/18 07/18/18 02:15 02:33 02:40 Temperature 98.2 F 98.2 F Pulse Rate 85 85 Respiratory 18 18 18 Rate Blood Pressure 133/92 133/92 O2 Sat by Pulse 100 98 Oximetry - Reevaluation(s) Reevaluation #1: 07/18/18 06:27 Patient reports her headache has improved since taking Tylenol in triage. ED Medical Decision Making - Medical Decision Making Patient has been evaluated by this provider fast track. Patient reports to me that her headache has improved since having Tylenol in triage. We'll discharge patient home with a refill on her metformin and Motrin for headache. Referral for [facility] to manage her chronic diseases. Patient verbalizes understanding Critical care attestation.: If time is entered above; I have spent that time in minutes in the direct care of this critically ill patient, excluding procedure time. ED Disposition Clinical Impression: Diabetes 1.5, managed as type 2 Headache Qualifiers: Headache type: unspecified Headache chronicity pattern: acute headache Intractability: intractable Qualified Code(s): R51 - Headache Disposition: DC-01 TO HOME OR SELFCARE Is pt being admited?: No Does the pt Need Aspirin: No Condition: Stable Instructions: Diabetes Mellitus Type 2 in Adults (ED) Additional Instructions: Please take metformin for your diabetes as prescribed. It is imperative she follow up with her primary care provider. I have listed one below. Prescriptions: Ibuprofen [Motrin 600 MG tab] 600 mg PO Q8H PRN #20 tablet PRN Reason: Pain Metformin HCl 1,000 mg PO BID #60 tablet Referrals: PRIMARY CARE, [Primary Care Provider] - 3-5 Days [facility] [Provider Group] - 3-5 Days Forms: Work/School Release Form(ED)
== END 2018-07-18 06:35 | disposition home or self-care (01) ==
LOC: ED 02:10
DX: G43.909 Migraine, unspecified, not intractable, without status migrainosus (principal); I10 Essential (primary) hypertension; E11.9 Type 2 diabetes mellitus without complications; E78.5 Hyperlipidemia, unspecified; Z90.49 Acquired absence of other specified parts of digestive tract; Z79.84 Long term (current) use of oral hypoglycemic drugs
CPT/HCPCS: 99282

== ENCOUNTER 2019-01-09 18:06 | Emergency (ER) | payer SELFPAY ==
[2019-01-09 18:18] VITALS: BP 120/75
--- NOTE | 2019-01-09 18:19 | Emergency Department Report ---
Blank Doc - Documentation Documentation: 53 y o female presents with neck discomfort states she slipped some days ago and felt a pop on the cack of her neck denies pain, loc or brock, n/v, CT cervical spine reevaluate
--- NOTE | 2019-01-09 20:24 | Cat Scan Report ---
FINAL REPORT PROCEDURE: CT CERVICAL SPINE WO CON TECHNIQUE: Computerized tomography of the cervical spine was performed from the skull base to T1 wit hout contrast material. HISTORY: cervical pain COMPARISON: No prior studies are available for comparison. FINDINGS: C1-2: There is narrowing of the atlantoaxial joint space with osteophyte formation without any spinal canal compromise.. C2-3: No significant abnormality. C3-4: No significant abnormality. C4-5: No significant abnormality. C5-6: No significant abnormality. C6-7: No significant abnormality. C7-T1: No significant abnormality. Other: No additional findings. 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 No evidence of spinal canal or neural foraminal compromise. No acute fracture.
--- NOTE | 2019-01-09 21:21 | Emergency Department Report ---
ED Neck Pain/Injury HPI - General Chief Complaint: Neck Pain/Injury Stated Complaint: NECK PAIN Time Seen by Provider: 01/09/19 18:15 Mode of arrival: Ambulatory Limitations: No Limitations - History of Present Illness Initial Comments: This is a 53-year-old female nontoxic, well nourished in appearance, no acute signs of distress presents to the ED with c/o of acute left sided neck pain x 1 day. Patient stated that the past 5 days ago she had a fall but patient developed while she was asleep and turned her neck and felt a "pop" sensation. Patient denies any radiation of pain. Patient denies any other trauma. Denies any bladder or bowel instability. Patient denies any urinary symptoms. Denies any fever, chills, nausea, vomiting, headache, stiff neck, chest pain or shortness of breath. Patient denies any numbness or tingling. Denies any allergies. PMH includes HTN and DM. MD Complaint: neck pain -: days(s) (1) Place: home Severity: mild Severity scale (0 -10): 3 Quality: aching Consistency: intermittent Improves With: immobilization, rest supine Worsens With: movement of neck Associated Symptoms: none. denies: headache, fever, numbness, tingling, weakness, vertigo, difficulty walking, swollen glands, difficulty swallowing, nausea, vomiting Treatments Prior to Arrival: none - Related Data Previous Rx's Medication Instructions Recorded Last Taken Type Lisinopril [Zestril] 20 mg PO QDAY #30 tablet 10/15/17 Unknown Rx Lovastatin [Altoprev] 20 mg PO QPM #30 tab.er.24h 10/15/17 Unknown Rx Nitrofurantoin Monohyd/M-Cryst 100 mg PO BID #10 capsule 11/13/17 Unknown Rx [Macrobid 100 mg Capsule] Butalb/Acetamin/Caff 50-325-40 2 tab PO Q8HR PRN #20 tablet 12/25/17 Unknown Rx [Fioricet] Ibuprofen 800 mg PO Q6H PRN #20 tablet 01/25/18 Unknown Rx Butalb/Acetamin/Caff 50-325-40 1 tab PO Q8HR PRN #10 tablet 04/01/18 Unknown Rx [Fioricet] Famotidine [Pepcid] 40 mg PO QHS #20 tablet 05/30/18 Unknown Rx HYDROcodone/APAP 5-325 [[place] 1 each PO Q6HR PRN #15 tablet 05/30/18 Unknown Rx 5/325] Ondansetron [Zofran Odt] 4 mg PO Q8HR PRN #10 tab.rapdis 05/30/18 Unknown Rx Metformin HCl 1,000 mg PO BID #60 tablet 07/18/18 Unknown Rx Ibuprofen [Motrin 600 MG tab] 600 mg PO Q8H PRN #20 tablet 11/28/18 Unknown Rx Metformin HCl [Glucophage] 1,000 mg PO BID #60 tablet 11/28/18 Unknown Rx Cyclobenzaprine [Flexeril] 10 mg PO QHS PRN #10 tablet 01/09/19 Unknown Rx Ibuprofen [Motrin] 600 mg PO Q8H PRN #20 tablet 01/09/19 Unknown Rx Allergies Allergy/AdvReac Type Severity Reaction Status Date / Time No Known Allergies Allergy Verified 01/09/19 18:13 ED Review of Systems ROS: Stated complaint: NECK PAIN Other details as noted in HPI Constitutional: denies: chills, fever Eyes: denies: eye pain, eye discharge, vision change ENT: denies: ear pain, throat pain Respiratory: denies: cough, shortness of breath, wheezing Cardiovascular: denies: chest pain, palpitations Endocrine: no symptoms reported Gastrointestinal: denies: abdominal pain, nausea, diarrhea Genitourinary: denies: urgency, dysuria, discharge Musculoskeletal: denies: back pain, joint swelling, arthralgia Skin: denies: rash, lesions Neurological: denies: headache, weakness, paresthesias Psychiatric: denies: anxiety, depression Hematological/Lymphatic: denies: easy bleeding, easy bruising ED Past Medical Hx - Past Medical History Hx Hypertension: Yes Hx Diabetes: Yes Hx Headaches / Migraines: Yes Additional medical history: hyperlipidemia - Surgical History Hx Cholecystectomy: Yes Additional Surgical History: gallbladder, L ovary removal - Social History Smoking Status: Never Smoker Substance Use Type: None - Medications Home Medications: Home Medications Medication Instructions Recorded Confirmed Last Taken Type Lisinopril [Zestril] 20 mg PO QDAY #30 tablet 10/15/17 11/13/17 Unknown Rx Lovastatin [Altoprev] 20 mg PO QPM #30 tab.er.24h 10/15/17 11/13/17 Unknown Rx Nitrofurantoin Monohyd/M-Cryst 100 mg PO BID #10 capsule 11/13/17 11/13/17 Unknown Rx [Macrobid 100 mg Capsule] Butalb/Acetamin/Caff 50-325-40 2 tab PO Q8HR PRN #20 tablet 12/25/17 Unknown Rx [Fioricet] Ibuprofen 800 mg PO Q6H PRN #20 tablet 01/25/18 Unknown Rx Butalb/Acetamin/Caff 50-325-40 1 tab PO Q8HR PRN #10 tablet 04/01/18 Unknown Rx [Fioricet] Famotidine [Pepcid] 40 mg PO QHS #20 tablet 05/30/18 Unknown Rx HYDROcodone/APAP 5-325 [[place] 1 each PO Q6HR PRN #15 tablet 05/30/18 Unknown Rx 5/325] Ondansetron [Zofran Odt] 4 mg PO Q8HR PRN #10 tab.rapdis 05/30/18 Unknown Rx Metformin HCl 1,000 mg PO BID #60 tablet 07/18/18 Unknown Rx Ibuprofen [Motrin 600 MG tab] 600 mg PO Q8H PRN #20 tablet 11/28/18 Unknown Rx Metformin HCl [Glucophage] 1,000 mg PO BID #60 tablet 11/28/18 Unknown Rx Cyclobenzaprine [Flexeril] 10 mg PO QHS PRN #10 tablet 01/09/19 Unknown Rx Ibuprofen [Motrin] 600 mg PO Q8H PRN #20 tablet 01/09/19 Unknown Rx ED Physical Exam - General Limitations: No Limitations General appearance: alert, in no apparent distress - Head Head exam: Present: atraumatic, normocephalic - Eye Eye exam: Present: normal appearance - Neck Neck exam: Present: normal inspection, full ROM. Absent: tenderness, meningismus, lymphadenopathy - Extremities Exam Extremities exam: Present: normal inspection, full ROM - Back Exam Back exam: Present: normal inspection, full ROM, paraspinal tenderness (left sided cervical paraspinal area). Absent: tenderness, CVA tenderness (R), CVA tenderness (L), muscle spasm, vertebral tenderness, rash noted - Neurological Exam Neurological exam: Present: alert, oriented X3 - Psychiatric Psychiatric exam: Present: normal affect, normal mood - Skin Skin exam: Present: warm, dry, intact, normal color. Absent: rash ED Course Vital Signs 01/09/19 18:13 Temperature 98.5 F Pulse Rate 105 H Respiratory 18 Rate Blood Pressure 120/75 O2 Sat by Pulse 100 Oximetry - Reevaluation(s) Reevaluation #1: 01/09/19 21:56 Patient is speaking in full sentences with no signs of distress noted. ED Medical Decision Making - Medical Decision Making This is a 53-year-old female that presents with cervical muscle strain. Patient is stable was examined by me. There is no spinal tenderness. CT cervical spine obtained and dictated by the radiologist. Patient is notified of the CT rsults with no questions noted by the patient. There is no cauda equina syndrome during examination. No bladder or bowel instability. Patient received Toradol 60 mg IM in the ED which preceded his symptoms has resolved and subsided. Patient is discharged with muscle relaxant and Motrin. Patient was instructed not to operate any machinery while taking muscle relaxant as they cause her drowsiness. Patient was referred to Follow-up with a primary care doctor in 3-5 days or if symptoms worsen and continue return to emergency room as soon as possible. At time of discharge, the patient does not seem toxic or ill in appearance. No acute signs of distress noted. Patient agrees to discharge treatment plan of care. No further questions noted by the patient. This chart is dictated with using [employer] Critical care attestation.: If time is entered above; I have spent that time in minutes in the direct care of this critically ill patient, excluding procedure time. ED Disposition Clinical Impression: Cervical muscle strain Qualifiers: Encounter type: initial encounter Qualified Code(s): S16.1XXA - Strain of muscle, fascia and tendon at neck level, initial encounter Disposition: DC-01 TO HOME OR SELFCARE Is pt being admited?: No Does the pt Need Aspirin: No Condition: Stable Instructions: Muscle Strain (ED), Cyclobenzaprine (By mouth) Additional Instructions: Follow-up with a primary care doctor in 3-5 days or if symptoms worsen and continue return to emergency room as soon as possible. Take ibuprofen and Flexeril as prescribed. Do not operate heavy machinery while taking Flexeril due to sedation Prescriptions: Cyclobenzaprine [Flexeril] 10 mg PO QHS PRN #10 tablet PRN Reason: Muscle Spasm Ibuprofen [Motrin] 600 mg PO Q8H PRN #20 tablet PRN Reason: Pain Referrals: PRIMARY CARE, [Referring] - 3-5 Days ARLENE GUTIERREZ MD [Staff Physician] - 3-5 Days [facility] [Outside] - 3-5 Days [facility] [Outside] - 3-5 Days Forms: Work/School Release Form(ED)
[2019-01-09] MEDS ORDERED: TORADOL IM ONE ×2 (21:33→21:34)
== END 2019-01-09 22:04 | disposition home or self-care (01) ==
LOC: ED 18:06
DX: S16.1XXA Strain of muscle, fascia and tendon at neck level, initial encounter (principal); I10 Essential (primary) hypertension; E11.9 Type 2 diabetes mellitus without complications; G43.909 Migraine, unspecified, not intractable, without status migrainosus; E78.00 Pure hypercholesterolemia, unspecified; X58.XXXA Exposure to other specified factors, initial encounter; Y93.89 Activity, other specified; Y92.89 Other specified places as the place of occurrence of the external cause; Y99.8 Other external cause status
CPT/HCPCS: 72125; 96372; 99283; J1885

== ENCOUNTER 2019-03-20 11:57 | Emergency (ER) | payer SELFPAY ==
[2019-03-20 12:41] VITALS: BP 112/83
--- NOTE | 2019-03-20 12:43 | Emergency Department Report ---
Blank Doc - Documentation Documentation: This is a 53-year-old female that presents with bilateral leg pains. Denies any trauma. HX of DM. This initial assessment/diagnostic orders/clinical plan/treatment(s) is/are subject to change based on patient's health status, clinical progression and re- assessment by fellow clinical providers in the ED. Further treatment and workup at subsequent clinical providers discretion. Patient/guardians urged not to elope from the ED as their condition may be serious if not clinically assessed and managed. Initial orders include: 1- Patient sent to [facility] for further evaluation and treatment 2- labs
[2019-03-20 13:09] LABS: Basophils % (Auto) 0.8 % (0.0-1.8); Eosinophils # (Auto) 0.1 K/mm3 (0.0-0.4); Eosinophils % (Auto) 1.6 % (0.0-4.3); Hematocrit 43.6 % (30.3-42.9); Hemoglobin 14.8 gm/dl (10.1-14.3); Lymphocytes # (Auto) 1.9 K/mm3 (1.2-5.4); Lymphocytes % (Auto) 39.4 % (13.4-35.0); Mean Corpuscular HGB Conc 34 % (30-34); Mean Corpuscular Volume 85 fl (79-97); Monocytes # (Auto) 0.3 K/mm3 (0.0-0.8); Monocytes % (Auto) 6.8 % (0.0-7.3); Platelet Count 147 K/mm3 (140-440); Red Blood Count 5.12 M/mm3 (3.65-5.03); Red Cell Distribution Width 13.9 % (13.2-15.2)
[2019-03-20 13:44] LABS: BUN/Creatinine Ratio 10; Blood Urea Nitrogen 8 mg/dL (7-17); Calcium 9.4 mg/dL (8.4-10.2); Hemolysis Index 3
[2019-03-20] MEDS ORDERED: ULTRAM PO ONE (13:58)
--- NOTE | 2019-03-20 13:58 | Emergency Department Report ---
ED General Adult HPI - General Chief complaint: Extremity Injury, Lower Stated complaint: LEG PAIN Time Seen by Provider: 03/20/19 12:41 Source: patient Mode of arrival: Ambulatory Limitations: No Limitations - History of Present Illness Initial comments: Mrs. Beavers is a very pleasant 53-year-old female who presents with sharp pain and Lasix for the last 4 days. No trauma. Feels like "electricity". History of diabetes. Does not have a primary care physician. Mild to moderate pain -: Gradual, days(s) (4) Location: left, right, lower extremity - Related Data Previous Rx's Medication Instructions Recorded Last Taken Type Lisinopril [Zestril] 20 mg PO QDAY #30 tablet 10/15/17 Unknown Rx Lovastatin [Altoprev] 20 mg PO QPM #30 tab.er.24h 10/15/17 Unknown Rx Nitrofurantoin Monohyd/M-Cryst 100 mg PO BID #10 capsule 11/13/17 Unknown Rx [Macrobid 100 mg Capsule] Butalb/Acetamin/Caff 50-325-40 2 tab PO Q8HR PRN #20 tablet 12/25/17 Unknown Rx [Fioricet] Ibuprofen 800 mg PO Q6H PRN #20 tablet 01/25/18 Unknown Rx Butalb/Acetamin/Caff 50-325-40 1 tab PO Q8HR PRN #10 tablet 04/01/18 Unknown Rx [Fioricet] Famotidine [Pepcid] 40 mg PO QHS #20 tablet 05/30/18 Unknown Rx HYDROcodone/APAP 5-325 [[place] 1 each PO Q6HR PRN #15 tablet 05/30/18 Unknown Rx 5/325] Ondansetron [Zofran Odt] 4 mg PO Q8HR PRN #10 tab.rapdis 05/30/18 Unknown Rx Metformin HCl 1,000 mg PO BID #60 tablet 07/18/18 Unknown Rx Ibuprofen [Motrin 600 MG tab] 600 mg PO Q8H PRN #20 tablet 11/28/18 Unknown Rx Metformin HCl [Glucophage] 1,000 mg PO BID #60 tablet 11/28/18 Unknown Rx Cyclobenzaprine [Flexeril] 10 mg PO QHS PRN #10 tablet 01/09/19 Unknown Rx Ibuprofen [Motrin] 600 mg PO Q8H PRN #20 tablet 01/09/19 Unknown Rx Gabapentin [Neurontin] 100 mg PO Q8HR 30 Days #90 capsule 03/20/19 Unknown Rx Allergies Allergy/AdvReac Type Severity Reaction Status Date / Time No Known Allergies Allergy Verified 01/09/19 18:13 ED Review of Systems ROS: Stated complaint: LEG PAIN Other details as noted in HPI Comment: All other systems reviewed and negative Constitutional: denies: fever, malaise Cardiovascular: denies: chest pain ED Past Medical Hx - Past Medical History Previous Medical History?: Yes Hx Hypertension: Yes Hx Diabetes: Yes Hx Headaches / Migraines: Yes Additional medical history: hyperlipidemia - Surgical History Past Surgical History?: Yes Hx Cholecystectomy: Yes Additional Surgical History: gallbladder, L ovary removal - Social History Smoking Status: Never Smoker Substance Use Type: None - Medications Home Medications: Home Medications Medication Instructions Recorded Confirmed Last Taken Type Lisinopril [Zestril] 20 mg PO QDAY #30 tablet 10/15/17 11/13/17 Unknown Rx Lovastatin [Altoprev] 20 mg PO QPM #30 tab.er.24h 10/15/17 11/13/17 Unknown Rx Nitrofurantoin Monohyd/M-Cryst 100 mg PO BID #10 capsule 11/13/17 11/13/17 Unknown Rx [Macrobid 100 mg Capsule] Butalb/Acetamin/Caff 50-325-40 2 tab PO Q8HR PRN #20 tablet 12/25/17 Unknown Rx [Fioricet] Ibuprofen 800 mg PO Q6H PRN #20 tablet 01/25/18 Unknown Rx Butalb/Acetamin/Caff 50-325-40 1 tab PO Q8HR PRN #10 tablet 04/01/18 Unknown Rx [Fioricet] Famotidine [Pepcid] 40 mg PO QHS #20 tablet 05/30/18 Unknown Rx HYDROcodone/APAP 5-325 [[place] 1 each PO Q6HR PRN #15 tablet 05/30/18 Unknown Rx 5/325] Ondansetron [Zofran Odt] 4 mg PO Q8HR PRN #10 tab.rapdis 05/30/18 Unknown Rx Metformin HCl 1,000 mg PO BID #60 tablet 07/18/18 Unknown Rx Ibuprofen [Motrin 600 MG tab] 600 mg PO Q8H PRN #20 tablet 11/28/18 Unknown Rx Metformin HCl [Glucophage] 1,000 mg PO BID #60 tablet 11/28/18 Unknown Rx Cyclobenzaprine [Flexeril] 10 mg PO QHS PRN #10 tablet 01/09/19 Unknown Rx Ibuprofen [Motrin] 600 mg PO Q8H PRN #20 tablet 01/09/19 Unknown Rx Gabapentin [Neurontin] 100 mg PO Q8HR 30 Days #90 capsule 03/20/19 Unknown Rx ED Physical Exam - General Limitations: No Limitations General appearance: alert, in no apparent distress - Head Head exam: Present: atraumatic, normocephalic - Eye Eye exam: Present: normal appearance - ENT ENT exam: Present: mucous membranes moist - Neck Neck exam: Present: normal inspection - Respiratory Respiratory exam: Present: normal lung sounds bilaterally. Absent: respiratory distress - Cardiovascular Cardiovascular Exam: Present: regular rate, normal rhythm. Absent: systolic murmur, diastolic murmur, rubs, gallop - GI/Abdominal GI/Abdominal exam: Present: soft, normal bowel sounds - Extremities Exam Extremities exam: Present: normal inspection - Back Exam Back exam: Present: normal inspection - Neurological Exam Neurological exam: Present: alert, oriented X3 - Psychiatric Psychiatric exam: Present: normal affect, normal mood - Skin Skin exam: Present: warm, dry, intact, normal color. Absent: rash ED Course Vital Signs 03/20/19 12:40 Temperature 98.0 F Pulse Rate 94 H Respiratory 16 Rate Blood Pressure 112/83 O2 Sat by Pulse 97 Oximetry ED Medical Decision Making - Lab Data Result diagrams: 03/20/19 12:55 03/20/19 12:55 - Medical Decision Making Mrs Beavers presents with pain from knee to the foot bilaterally. Differential diagnosis includes diabetic neuropathy, plantar fasciitis, strain from overuse Prescribed gabapentin referred to conference services director Critical care attestation.: If time is entered above; I have spent that time in minutes in the direct care of this critically ill patient, excluding procedure time. ED Disposition Clinical Impression: Leg pain, bilateral Disposition: DC-01 TO HOME OR SELFCARE Is pt being admited?: No Does the pt Need Aspirin: No Condition: Stable Instructions: Diabetic Neuropathy (ED) Prescriptions: Gabapentin [Neurontin] 100 mg PO Q8HR 30 Days #90 capsule Referrals: SRIDEVI FARLEY MD [Primary Care Provider] - 3-5 Days JEFF ROJAS DPM [Staff Physician] - 3-5 Days Print Language: UKRAINIAN
== END 2019-03-20 14:19 | disposition home or self-care (01) ==
LOC: ED 11:57
DX: M79.604 Pain in right leg (principal); M79.605 Pain in left leg; I10 Essential (primary) hypertension; E11.9 Type 2 diabetes mellitus without complications; G43.909 Migraine, unspecified, not intractable, without status migrainosus; E78.5 Hyperlipidemia, unspecified; Z90.49 Acquired absence of other specified parts of digestive tract
CPT/HCPCS: 36415; 80048; 85025; 99283

== ENCOUNTER 2019-05-30 13:25 | Emergency (ER) | payer SELFPAY ==
[2019-05-30 13:43] VITALS: BP 143/89
[2019-05-30] MEDS ORDERED: NACL 0.9% 1000 ML 1,000 ML IV ONE ×2 (13:53)
[2019-05-30 14:26] LABS: Basophils # (Auto) 0.1 K/mm3 (0.0-0.1); Eosinophils # (Auto) 0.1 K/mm3 (0.0-0.4); Eosinophils % (Auto) 1.8 % (0.0-4.3); Hematocrit 42.9 % (30.3-42.9); Hemoglobin 14.9 gm/dl (10.1-14.3); Lymphocytes % (Auto) 36.7 % (13.4-35.0); Mean Corpuscular HGB Conc 35 % (30-34); Mean Corpuscular Volume 85 fl (79-97); Monocytes # (Auto) 0.3 K/mm3 (0.0-0.8); Monocytes % (Auto) 6.4 % (0.0-7.3); Platelet Count 160 K/mm3 (140-440); Red Blood Count 5.04 M/mm3 (3.65-5.03); Red Cell Distribution Width 13.5 % (13.2-15.2)
[2019-05-30 14:40] LABS: Alanine Aminotransferase 18 units/L (7-56); BUN/Creatinine Ratio 10; Blood Urea Nitrogen 7 mg/dL (7-17); Calcium 9.6 mg/dL (8.4-10.2); Hemolysis Index 10
--- NOTE | 2019-05-30 16:41 | Emergency Department Report ---
ED General Adult HPI - General Chief complaint: Hyperglycemia Stated complaint: BLOOD SUGAR HIGH Time Seen by Provider: 05/30/19 13:48 Source: patient, EMS Mode of arrival: Stretcher Limitations: No Limitations - History of Present Illness Initial comments: Patient is a 53-year-old female past medical history of diabetes type 2 who presents with hyperglycemia. 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 Patient denies any pain she states that she does want to check her sugar and her blood pressure. Patient denies any nausea she denies any vomiting. Severity scale (0 -10): 0 - Related Data Previous Rx's Medication Instructions Recorded Last Taken Type Lisinopril [Zestril] 20 mg PO QDAY #30 tablet 10/15/17 Unknown Rx Lovastatin [Altoprev] 20 mg PO QPM #30 tab.er.24h 10/15/17 Unknown Rx Nitrofurantoin Monohyd/M-Cryst 100 mg PO BID #10 capsule 11/13/17 Unknown Rx [Macrobid 100 mg Capsule] Butalb/Acetamin/Caff 50-325-40 2 tab PO Q8HR PRN #20 tablet 12/25/17 Unknown Rx [Fioricet] Ibuprofen [Ibuprofen 800] 800 mg PO Q6H PRN #20 tablet 01/25/18 Unknown Rx Butalb/Acetamin/Caff 50-325-40 1 tab PO Q8HR PRN #10 tablet 04/01/18 Unknown Rx [Fioricet] Famotidine [Pepcid] 40 mg PO QHS #20 tablet 05/30/18 Unknown Rx HYDROcodone/APAP 5-325 [[place] 1 each PO Q6HR PRN #15 tablet 05/30/18 Unknown Rx 5/325] Ondansetron [Zofran Odt] 4 mg PO Q8HR PRN #10 tab.rapdis 05/30/18 Unknown Rx Metformin HCl [metFORMIN] 1,000 mg PO BID #60 tablet 07/18/18 Unknown Rx Ibuprofen [Motrin 600 MG tab] 600 mg PO Q8H PRN #20 tablet 11/28/18 Unknown Rx Metformin HCl [Glucophage] 1,000 mg PO BID #60 tablet 11/28/18 Unknown Rx Cyclobenzaprine [Flexeril] 10 mg PO QHS PRN #10 tablet 01/09/19 Unknown Rx Ibuprofen [Motrin] 600 mg PO Q8H PRN #20 tablet 01/09/19 Unknown Rx Gabapentin [Neurontin] 100 mg PO Q8HR 30 Days #90 capsule 03/20/19 Unknown Rx Gabapentin [Neurontin] 100 mg PO Q8HR #90 capsule 04/05/19 Unknown Rx Lisinopril [Zestril TAB] 20 mg PO QDAY #30 tablet 04/05/19 Unknown Rx metFORMIN [Glucophage] 850 mg PO BID #60 tablet 04/05/19 Unknown Rx Allergies Allergy/AdvReac Type Severity Reaction Status Date / Time No Known Allergies Allergy Verified 01/09/19 18:13 ED Review of Systems ROS: Stated complaint: BLOOD SUGAR HIGH Other details as noted in HPI Constitutional: denies: chills, fever Eyes: denies: eye pain, eye discharge, vision change ENT: denies: ear pain, throat pain Respiratory: denies: cough, shortness of breath, wheezing Cardiovascular: denies: chest pain, palpitations Endocrine: no symptoms reported Gastrointestinal: denies: abdominal pain, nausea, diarrhea Genitourinary: denies: urgency, dysuria, discharge Musculoskeletal: denies: back pain, joint swelling, arthralgia Skin: denies: rash, lesions Neurological: denies: headache, weakness, paresthesias Psychiatric: denies: anxiety, depression Hematological/Lymphatic: denies: easy bleeding, easy bruising ED Past Medical Hx - Past Medical History Previous Medical History?: Yes Hx Hypertension: Yes Hx Diabetes: Yes Hx Headaches / Migraines: Yes Additional medical history: hyperlipidemia - Surgical History Past Surgical History?: Yes Hx Cholecystectomy: Yes Additional Surgical History: gallbladder, L ovary removal - Social History Smoking Status: Never Smoker Substance Use Type: None - Medications Home Medications: Home Medications Medication Instructions Recorded Confirmed Last Taken Type Lisinopril [Zestril] 20 mg PO QDAY #30 tablet 10/15/17 11/13/17 Unknown Rx Lovastatin [Altoprev] 20 mg PO QPM #30 tab.er.24h 10/15/17 11/13/17 Unknown Rx Nitrofurantoin Monohyd/M-Cryst 100 mg PO BID #10 capsule 11/13/17 11/13/17 Unknown Rx [Macrobid 100 mg Capsule] Butalb/Acetamin/Caff 50-325-40 2 tab PO Q8HR PRN #20 tablet 12/25/17 Unknown Rx [Fioricet] Ibuprofen [Ibuprofen 800] 800 mg PO Q6H PRN #20 tablet 01/25/18 Unknown Rx Butalb/Acetamin/Caff 50-325-40 1 tab PO Q8HR PRN #10 tablet 04/01/18 Unknown Rx [Fioricet] Famotidine [Pepcid] 40 mg PO QHS #20 tablet 05/30/18 Unknown Rx HYDROcodone/APAP 5-325 [[place] 1 each PO Q6HR PRN #15 tablet 05/30/18 Unknown Rx 5/325] Ondansetron [Zofran Odt] 4 mg PO Q8HR PRN #10 tab.rapdis 05/30/18 Unknown Rx Metformin HCl [metFORMIN] 1,000 mg PO BID #60 tablet 07/18/18 Unknown Rx Ibuprofen [Motrin 600 MG tab] 600 mg PO Q8H PRN #20 tablet 11/28/18 Unknown Rx Metformin HCl [Glucophage] 1,000 mg PO BID #60 tablet 11/28/18 Unknown Rx Cyclobenzaprine [Flexeril] 10 mg PO QHS PRN #10 tablet 01/09/19 Unknown Rx Ibuprofen [Motrin] 600 mg PO Q8H PRN #20 tablet 01/09/19 Unknown Rx Gabapentin [Neurontin] 100 mg PO Q8HR 30 Days #90 capsule 03/20/19 Unknown Rx Gabapentin [Neurontin] 100 mg PO Q8HR #90 capsule 04/05/19 Unknown Rx Lisinopril [Zestril TAB] 20 mg PO QDAY #30 tablet 04/05/19 Unknown Rx metFORMIN [Glucophage] 850 mg PO BID #60 tablet 04/05/19 Unknown Rx ED Physical Exam - General Limitations: No Limitations General appearance: alert, in no apparent distress - Head Head exam: Present: atraumatic, normocephalic - Eye Eye exam: Present: normal appearance - ENT ENT exam: Present: mucous membranes moist - Neck Neck exam: Present: normal inspection - Respiratory Respiratory exam: Present: normal lung sounds bilaterally. Absent: respiratory distress - Cardiovascular Cardiovascular Exam: Present: regular rate, normal rhythm. Absent: systolic murmur, diastolic murmur, rubs, gallop - GI/Abdominal GI/Abdominal exam: Present: soft, normal bowel sounds - Extremities Exam Extremities exam: Present: normal inspection - Back Exam Back exam: Present: normal inspection - Neurological Exam Neurological exam: Present: alert, oriented X3 - Psychiatric Psychiatric exam: Present: normal affect, normal mood - Skin Skin exam: Present: warm, dry, intact, normal color. Absent: rash ED Course Vital Signs 05/30/19 05/30/19 13:40 13:44 Temperature 97.7 F Pulse Rate 96 H Respiratory 14 14 Rate Blood Pressure 143/89 O2 Sat by Pulse 95 95 Oximetry ED Medical Decision Making - Lab Data Result diagrams: 05/30/19 14:03 05/30/19 14:03 Lab Results 05/30/19 05/30/19 05/30/19 Range/Units 13:46 14:03 14:03 WBC 5.3 (4.5-11.0) K/mm3 RBC 5.04 H (3.65-5.03) M/mm3 Hgb 14.9 H (10.1-14.3) gm/dl Hct 42.9 (30.3-42.9) % MCV 85 (79-97) fl MCH 30 (28-32) pg MCHC 35 H (30-34) % RDW 13.5 (13.2-15.2) % Plt Count 160 (140-440) K/mm3 Lymph % (Auto) 36.7 H (13.4-35.0) % Saunders % (Auto) 6.4 (0.0-7.3) % Eos % (Auto) 1.8 (0.0-4.3) % Baso % (Auto) Floral Artist Lymph # 2.0 (1.2-5.4) K/mm3 Saunders # 0.3 (0.0-0.8) K/mm3 Eos # 0.1 (0.0-0.4) K/mm3 Baso # 0.1 (0.0-0.1) K/mm3 Seg Neutrophils % 54.1 (40.0-70.0) % Seg Neutrophils # 2.9 (1.8-7.7) K/mm3 Sodium 136 L (137-145) mmol/L Potassium 4.0 (3.6-5.0) mmol/L Chloride 98.0 (98-107) mmol/L Carbon Dioxide 23 (22-30) mmol/L Anion Gap 19 mmol/L BUN 7 (7-17) mg/dL Creatinine 0.7 (0.7-1.2) mg/dL Estimated GFR > 60 ml/min BUN/Creatinine Ratio 10 % Glucose 376 H (65-100) mg/dL POC Glucose 343 H (70-105) Calcium 9.6 (8.4-10.2) mg/dL Total Bilirubin 0.50 (0.1-1.2) mg/dL AST 19 (5-40) units/L ALT 18 (7-56) units/L Alkaline Phosphatase 121 (35-129) units/L Total Protein 7.0 (6.3-8.2) g/dL Albumin 4.0 (3.9-5) g/dL Albumin/Globulin Ratio 1.3 % Lab Results 05/30/19 05/30/19 05/30/19 Range/Units 13:46 14:03 14:03 WBC 5.3 (4.5-11.0) K/mm3 RBC 5.04 H (3.65-5.03) M/mm3 Hgb 14.9 H (10.1-14.3) gm/dl Hct 42.9 (30.3-42.9) % MCV 85 (79-97) fl MCH 30 (28-32) pg MCHC 35 H (30-34) % RDW 13.5 (13.2-15.2) % Plt Count 160 (140-440) K/mm3 Lymph % (Auto) 36.7 H (13.4-35.0) % Saunders % (Auto) 6.4 (0.0-7.3) % Eos % (Auto) 1.8 (0.0-4.3) % Baso % (Auto) Floral Artist Lymph # 2.0 (1.2-5.4) K/mm3 Saunders # 0.3 (0.0-0.8) K/mm3 Eos # 0.1 (0.0-0.4) K/mm3 Baso # 0.1 (0.0-0.1) K/mm3 Seg Neutrophils % 54.1 (40.0-70.0) % Seg Neutrophils # 2.9 (1.8-7.7) K/mm3 Sodium 136 L (137-145) mmol/L Potassium 4.0 (3.6-5.0) mmol/L Chloride 98.0 (98-107) mmol/L Carbon Dioxide 23 (22-30) mmol/L Anion Gap 19 mmol/L BUN 7 (7-17) mg/dL Creatinine 0.7 (0.7-1.2) mg/dL Estimated GFR > 60 ml/min BUN/Creatinine Ratio 10 % Glucose 376 H (65-100) mg/dL POC Glucose 343 H (70-105) Calcium 9.6 (8.4-10.2) mg/dL Total Bilirubin 0.50 (0.1-1.2) mg/dL AST 19 (5-40) units/L ALT 18 (7-56) units/L Alkaline Phosphatase 121 (35-129) units/L Total Protein 7.0 (6.3-8.2) g/dL Albumin 4.0 (3.9-5) g/dL Albumin/Globulin Ratio 1.3 % // Range/Units 17:05 WBC (4.5-11.0) K/mm3 RBC (3.65-5.03) M/mm3 Hgb (10.1-14.3) gm/dl Hct (30.3-42.9) % MCV (79-97) fl MCH (28-32) pg MCHC (30-34) % RDW (13.2-15.2) % Plt Count (140-440) K/mm3 Lymph % (Auto) (13.4-35.0) % Saunders % (Auto) (0.0-7.3) % Eos % (Auto) (0.0-4.3) % Baso % (Auto) Lymph # (1.2-5.4) K/mm3 Saunders # (0.0-0.8) K/mm3 Eos # (0.0-0.4) K/mm3 Baso # (0.0-0.1) K/mm3 Seg Neutrophils % (40.0-70.0) % Seg Neutrophils # (1.8-7.7) K/mm3 Sodium (137-145) mmol/L Potassium (3.6-5.0) mmol/L Chloride (98-107) mmol/L Carbon Dioxide (22-30) mmol/L Anion Gap mmol/L BUN (7-17) mg/dL Creatinine (0.7-1.2) mg/dL Estimated GFR ml/min BUN/Creatinine Ratio % Glucose (65-100) mg/dL POC Glucose 246 H (70-105) Calcium (8.4-10.2) mg/dL Total Bilirubin (0.1-1.2) mg/dL AST (5-40) units/L ALT (7-56) units/L Alkaline Phosphatase (35-129) units/L Total Protein (6.3-8.2) g/dL Albumin (3.9-5) g/dL Albumin/Globulin Ratio % - Medical Decision Making Chief medical diagnosis: Hyperglycemia Differential medical diagnosis: Diabetic ketoacidosis, dehydration with a CBC BMP the IV fluids and I will recheck the patient's blood sugar. Critical care attestation.: If time is entered above; I have spent that time in minutes in the direct care of this critically ill patient, excluding procedure time. ED Disposition Clinical Impression: Hyperglycemia due to type 2 diabetes mellitus Qualifiers: Diabetes mellitus manager intermediate insulin use: unspecified half-way insulin use status Qualified Code(s): E11.65 - Type 2 diabetes mellitus with hyperglycemia Disposition: DC TO HOME OR SELFCARE Is pt being admited?: No Does the pt Need Aspirin: No Condition: Stable Instructions: Diabetes Mellitus Type 2 in Adults (ED) Referrals: SRIDEVI FARLEY MD [Primary Care Provider] - 3-5 Days
== END 2019-05-30 17:22 | disposition home or self-care (01) ==
LOC: ED 13:25
DX: E11.65 Type 2 diabetes mellitus with hyperglycemia (principal); I10 Essential (primary) hypertension; E11.9 Type 2 diabetes mellitus without complications; G43.909 Migraine, unspecified, not intractable, without status migrainosus; E78.5 Hyperlipidemia, unspecified
CPT/HCPCS: 80053; 82962; 85025; 96360; 96361; 99284; J7030